=== PATIENT | female | born 1980 | race American Indian/Alaskan Native ===

== ENCOUNTER 2020-07-18 02:19 | Inpatient (IN) | payer OTHER ==
[2020-07-18] MEDS ORDERED: diphenhydrAMINE 50 MG/ML VIAL IV ONE (04:08)
[2020-07-18] MEDS ORDERED: LACTATED RINGERS 1,000 ML IV ONE (04:08)
[2020-07-18] MEDS ORDERED: METOCLOPRAMIDE 10 MG/2 ML INJ IV ONE (04:08)
--- NOTE | 2020-07-18 04:10 | Emergency Department Report ---
ED General Adult HPI - General Chief complaint: Syncope Stated complaint: i fell and hit my head PUI?: No Time Seen by Provider: 07/18/20 02:41 Source: patient, EMS, RN notes reviewed Mode of arrival: Stretcher Limitations: Other (Patient somewhat confused and appears to be somewhat of a poor historian) - History of Present Illness Initial comments: The patient was evaluated in the emergency department for symptoms described in the history of present illness. He/she was evaluated in the context of the global COVID-19 pandemic, which necessitated consideration that the patient might be at risk for infection with the virus that causes COVID-19. Institutional protocols and algorithms that pertain to the evaluation of aspen ents at risk for COVID-19 are in a state of rapid change based on information released by regulatory bodies including the CDC and federal and state organizations. These policies and algorithms were followed during the patient's care in the emergency department. Please note that these policies, procedures and recommendations changed on a rapid basis. During the history and physical examination, I am chaperoned by nurse Angela Capma Patient is a 40-year-old female. She is not known to myself previously. She is brought to the hospital by emergency medical services. History obtained from chart and nurse, who received report from EMS, who in turn received report from family, and also from the patient. Apparently, the patient was in the bathroom earlier on today/yesterday, and had an episode of loss of consciousness. It does not know if the patient had an episode of syncope, seizure, or otherwise. The patient herself states that she felt like she was in her usual state of h ealth over the past few days. Before this evening's presentation, she denies all physical pain. She denies loss of taste and smell. She specifically denied chest pain or shortness of breath. Apparently, the patient had a loss of consciousness while in the bathroom, fell and hit her head. Patient thinks that she fell and hit her head as well. She cannot recall the circumstances that preceded this. She denies travel, surgery, DVT, pulmonary embolism risk factors, and she reports that she is not . She has a mild headache. The headache is not sudden or thunderclap in nature. The headache is not maximal in intensity. There is no midline neck pain. The patient denies drug overdose. The patient denies having had seizures in the past. The patient does not believe she takes any long-term prescription medications. -: Sudden Location: head Severity scale (0 -10): 0 Quality: aching Consistency: intermittent Improves with: rest ED Review of Systems ROS: Stated complaint: SEIZURE/FALL Other details as noted in HPI Constitutional: malaise, weakness, other (Denies loss of taste and smell). denies: fever Eyes: denies: eye discharge, vision change Respiratory: denies: cough Cardiovascular: syncope (Possible syncope). denies: chest pain Gastrointestinal: denies: abdominal pain, nausea, vomiting, hematemesis, melena, hematochezia Genitourinary: denies: dysuria Musculoskeletal: myalgia Neurological: headache, weakness, confusion. denies: numbness, paresthesias Psychiatric: as per HPI ED Past Medical Hx - Past Medical History Previous Medical History?: Yes Hx Asthma: Yes - Surgical History Past Surgical History?: Yes Additional Surgical History: sinus - Social History Smoking Status: Never Smoker Substance Use Type: Alcohol ED Physical Exam - General Limitations: Other (Patient has incomplete recollection of events.) General appearance: in no apparent distress, obese - Head Head exam: Present: atraumatic, normocephalic - Eye Eye exam: Present: normal appearance, PERRL, EOMI, other (Visual acuity intact to finger counting, color perception, reading at a close distance). Absent: nystagmus - ENT ENT exam: Present: normal exam, normal orophraynx, mucous membranes moist, TM's normal bilaterally, normal external ear exam, other (No mastoid tenderness. No hemotympanum. No nasal septal hematoma) - Neck Neck exam: Present: normal inspection. Absent: tenderness, meningismus - Respiratory Respiratory exam: Present: normal lung sounds bilaterally. Absent: respiratory distress, wheezes, rales, rhonchi, stridor, decreased breath sounds - Cardiovascular Cardiovascular Exam: Present: regular rate, normal rhythm, normal heart sounds. Absent: bradycardia, tachycardia, irregular rhythm, systolic murmur, diastolic murmur, rubs, gallop - GI/Abdominal GI/Abdominal exam: Present: soft, normal bowel sounds. Absent: distended, tenderness, guarding, rebound, rigid, pulsatile mass - Extremities Exam Extremities exam: Present: normal inspection, full ROM, other (2+ pulses noted in the bilateral upper and lower extremities. There is no palpable cord. negative Homans sign. Muscular compartments are soft. The pelvis is stable.). Absent: pedal edema, calf tenderness - Back Exam Back exam: Present: normal inspection, full ROM. Absent: tenderness, CVA tenderness (R), CVA tenderness (L), paraspinal tenderness, vertebral tenderness - Neurological Exam Neurological exam: Present: alert, normal gait, other (No facial droop. Tongue midline. Extraocular movements intact bilaterally. Facial sensation intact to light touch in V1, V2, V3 distribution bilaterally. 5 and a 5 strength in 4 extremities. Sensation intact to light touch in 4 extremities.). Absent: motor sensory deficit - Psychiatric Psychiatric exam: Present: normal affect, normal mood - Skin Skin exam: Present: warm, dry, intact, normal color. Absent: rash ED Course Vital Signs 07/18/20 07/18/20 03:08 05:03 Temperature 98.0 F Pulse Rate 86 90 Respiratory 15 20 Rate Blood Pressure 113/67 116/65 [Left] O2 Sat by Pulse 98 100 Oximetry - Reevaluation(s) Reevaluation #1: 07/18/20 04:39 Differential diagnosis, including but not limited to: Orthostasis, vagal event, structural cardiac disease, acute coronary syndrome, pulmonary embolism, seizure, convulsion, electrolyte derangement, concussion, closed head injury, spinal injury Assessment and plan: 40-year-old female found unresponsive at home, now currently awake, alert, oriented, minimally confused, GCS of 14, but not c linically intoxicated. She is not currently tachycardic, tachypneic or hypoxic, she has a nonfocal motor examination. Given confusion and closed head injury, obtain CT scan of the brain and cervical spine. Obtain appropriate laboratory studies, EKG, urinalysis, serum toxicology studies, Accu-Chek, and D-dimer. Treat patient's symptoms. Reassess after initial data points. Place patient on spanner operator. Reevaluation #2: 07/18/20 05:20 Mclennan syncope risk score: 1 points Mclennan Syncope Risk Score Medium risk 3.1% risk of 30-day serious adverse event (, arrhythmia, [place] D-dimer elevated. CT scan of the chest ordered. EKG abnormal. We would likely admit this patient for evaluation of seizure versus syncope, and abnormal EKG. 07/18/20 05:58 Patient resting comfortably. She is sleepy but arousable. CT scan of the chest pending interpretation. Patient amenable to admission/hospitalization for seizure/syncope work-up. Hospital physician, Dr. Sylvester Boswell to admit 07/18/20 06:13 received verbal report from radiologist. CT scan of the chest suggest small pulmonary emboli, without evidence of right heart strain, or large clot burden. Lovenox ordered. I doubt that this is the cause of the patient's syncope. I will defer to the inpatient team to further follow-up and manage. ED Medical Decision Making - Lab Data Result diagrams: 07/18/20 04:25 07/18/20 04:25 Vital Signs 07/18/20 03:08 Temperature 98.0 F Pulse Rate 86 Respiratory 15 Rate Blood Pressure 113/67 [Left] O2 Sat by Pulse 98 Oximetry Vital Signs 07/18/20 07/18/20 03:08 05:03 Temperature 98.0 F Pulse Rate 86 90 Respiratory 15 20 Rate Blood Pressure 113/67 116/65 [Left] O2 Sat by Pulse 98 100 Oximetry Lab Results 07/18/20 07/18/20 07/18/20 Range/Units 04:11 04:11 04:25 WBC 7.0 (4.5-11.0) K/mm3 RBC 3.94 (3.65-5.03) M/mm3 Hgb 12.4 (10.1-14.3) gm/dl Hct 36.4 (30.3-42.9) % MCV 92 (79-97) fl MCH 32 (28-32) pg MCHC 34 (30-34) % RDW 12.5 L (13.2-15.2) % Plt Count 303 (140-440) K/mm3 Lymph % (Auto) 13.3 L (13.4-35.0) % Lander % (Auto) 4.7 (0.0-7.3) % Eos % (Auto) 1.3 (0.0-4.3) % Baso % (Auto) 0.4 (0.0-1.8) % Lymph # (Auto) 0.9 L (1.2-5.4) K/mm3 Lander # (Auto) 0.3 (0.0-0.8) K/mm3 Eos # (Auto) 0.1 (0.0-0.4) K/mm3 Baso # (Auto) 0.0 (0.0-0.1) K/mm3 Seg Neutrophils % 80.3 H (40.0-70.0) % Seg Neutrophils # 5.6 (1.8-7.7) K/mm3 PT (12.2-14.9) Sec. INR (0.87-1.13) D-Dimer (0-234) ng/mlDDU Sodium (137-145) mmol/L Potassium (3.6-5.0) mmol/L Chloride (98-107) mmol/L Carbon Dioxide (22-30) mmol/L Anion Gap mmol/L BUN (7-17) mg/dL Creatinine (0.6-1.2) mg/dL Estimated GFR ml/min BUN/Creatinine Ratio % Glucose (65-100) mg/dL Calcium (8.4-10.2) mg/dL Magnesium (1.7-2.3) mg/dL Total Bilirubin (0.1-1.2) mg/dL AST (5-40) units/L ALT (7-56) units/L Alkaline Phosphatase (35-129) units/L Total Creatine Kinase (30-135) units/L Troponin T (0.00-0.029) ng/mL Total Protein (6.3-8.2) g/dL Albumin (3.9-5) g/dL Albumin/Globulin Ratio % HCG, Quant (0-4) mIU/mL Urine Color Yellow (Yellow) Urine Turbidity Slightly-cloudy (Clear) Urine pH 5.0 (5.0-7.0) Ur Specific Gardners 1.019 (1.003-1.030) Urine Protein 30 mg/dl (Negative) mg/dL Urine Glucose (UA) Neg (Negative) mg/dL Urine Ketones Neg (Negative) mg/dL Urine Blood Neg (Negative) Urine Nitrite Neg (Negative) Urine Bilirubin Neg (Negative) Urine Urobilinogen 4.0 (<2.0) mg/dL Ur Leukocyte Esterase Neg (Negative) Urine WBC (Auto) 5.0 (0.0-6.0) /HPF Urine RBC (Auto) 4.0 (0.0-6.0) /HPF U Epithel Cells (Auto) 1.0 (0-13.0) /HPF Urine Bacteria (Auto) 2+ (Negative) /HPF Urine Mucus Few /HPF Urine Yeast (Budding) Few /HPF Salicylates (2.8-20.0) mg/dL Urine Opiates Screen Presumptive negative Urine Methadone Screen Presumptive negative Acetaminophen (10.0-30.0) ug/mL Ur Barbiturates Screen Presumptive negative Ur Phencyclidine Scrn Presumptive negative Ur Amphetamines Screen Presumptive negative U Benzodiazepines Scrn Presumptive negative Urine Cocaine Screen Presumptive negative U Marijuana (THC) Screen Presumptive negative Drugs of Abuse Note Disclamer Plasma/Serum Alcohol (0-0.07) % 07/18/20 07/18/20 07/18/20 Range/Units 04:25 04:25 04:25 WBC (4.5-11.0) K/mm3 RBC (3.65-5.03) M/mm3 Hgb (10.1-14.3) gm/dl Hct (30.3-42.9) % MCV (79-97) fl MCH (28-32) pg MCHC (30-34) % RDW (13.2-15.2) % Plt Count (140-440) K/mm3 Lymph % (Auto) (13.4-35.0) % Lander % (Auto) (0.0-7.3) % Eos % (Auto) (0.0-4.3) % Baso % (Auto) (0.0-1.8) % Lymph # (Auto) (1.2-5.4) K/mm3 Lander # (Auto) (0.0-0.8) K/mm3 Eos # (Auto) (0.0-0.4) K/mm3 Baso # (Auto) (0.0-0.1) K/mm3 Seg Neutrophils % (40.0-70.0) % Seg Neutrophils # (1.8-7.7) K/mm3 PT (12.2-14.9) Sec. INR (0.87-1.13) D-Dimer (0-234) ng/mlDDU Sodium 138 (137-145) mmol/L Potassium 4.0 (3.6-5.0) mmol/L Chloride 103.3 (98-107) mmol/L Carbon Dioxide 25 (22-30) mmol/L Anion Gap 14 mmol/L BUN 13 (7-17) mg/dL Creatinine 0.9 (0.6-1.2) mg/dL Estimated GFR > 60 ml/min BUN/Creatinine Ratio 14 % Glucose 109 H (65-100) mg/dL Calcium 8.8 (8.4-10.2) mg/dL Magnesium (1.7-2.3) mg/dL Total Bilirubin 0.40 (0.1-1.2) mg/dL AST 18 (5-40) units/L ALT 10 (7-56) units/L Alkaline Phosphatase 67 (35-129) units/L Total Creatine Kinase (30-135) units/L Troponin T (0.00-0.029) ng/mL Total Protein 7.7 (6.3-8.2) g/dL Albumin 4.3 (3.9-5) g/dL Albumin/Globulin Ratio 1.3 % HCG, Quant (0-4) mIU/mL Urine Color (Yellow) Urine Turbidity (Clear) Urine pH (5.0-7.0) Ur Specific Gardners (1.003-1.030) Urine Protein (Negative) mg/dL Urine Glucose (UA) (Negative) mg/dL Urine Ketones (Negative) mg/dL Urine Blood (Negative) Urine Nitrite (Negative) Urine Bilirubin (Negative) Urine Urobilinogen (<2.0) mg/dL Ur Leukocyte Esterase (Negative) Urine WBC (Auto) (0.0-6.0) /HPF Urine RBC (Auto) (0.0-6.0) /HPF U Epithel Cells (Auto) (0-13.0) /HPF Urine Bacteria (Auto) (Negative) /HPF Urine Mucus /HPF Urine Yeast (Budding) /HPF Salicylates < 0.3 L (2.8-20.0) mg/dL Urine Opiates Screen Urine Methadone Screen Acetaminophen 5.0 L (10.0-30.0) ug/mL Ur Barbiturates Screen Ur Phencyclidine Scrn Ur Amphetamines Screen U Benzodiazepines Scrn Urine Cocaine Screen U Marijuana (THC) Screen Drugs of Abuse Note Plasma/Serum Alcohol (0-0.07) % 07/18/20 07/18/20 07/18/20 Range/Units 04:25 04:25 04:25 WBC (4.5-11.0) K/mm3 RBC (3.65-5.03) M/mm3 Hgb (10.1-14.3) gm/dl Hct (30.3-42.9) % MCV (79-97) fl MCH (28-32) pg MCHC (30-34) % RDW (13.2-15.2) % Plt Count (140-440) K/mm3 Lymph % (Auto) (13.4-35.0) % Lander % (Auto) (0.0-7.3) % Eos % (Auto) (0.0-4.3) % Baso % (Auto) (0.0-1.8) % Lymph # (Auto) (1.2-5.4) K/mm3 Lander # (Auto) (0.0-0.8) K/mm3 Eos # (Auto) (0.0-0.4) K/mm3 Baso # (Auto) (0.0-0.1) K/mm3 Seg Neutrophils % (40.0-70.0) % Seg Neutrophils # (1.8-7.7) K/mm3 PT 13.3 (12.2-14.9) Sec. INR 1.02 (0.87-1.13) D-Dimer 1482.03 H (0-234) ng/mlDDU Sodium (137-145) mmol/L Potassium (3.6-5.0) mmol/L Chloride (98-107) mmol/L Carbon Dioxide (22-30) mmol/L Anion Gap mmol/L BUN (7-17) mg/dL Creatinine (0.6-1.2) mg/dL Estimated GFR ml/min BUN/Creatinine Ratio % Glucose (65-100) mg/dL Calcium (8.4-10.2) mg/dL Magnesium 2.00 (1.7-2.3) mg/dL Total Bilirubin (0.1-1.2) mg/dL AST (5-40) units/L ALT (7-56) units/L Alkaline Phosphatase (35-129) units/L Total Creatine Kinase 336 H (30-135) units/L Troponin T < 0.010 (0.00-0.029) ng/mL Total Protein (6.3-8.2) g/dL Albumin (3.9-5) g/dL Albumin/Globulin Ratio % HCG, Quant (0-4) mIU/mL Urine Color (Yellow) Urine Turbidity (Clear) Urine pH (5.0-7.0) Ur Specific Gardners (1.003-1.030) Urine Protein (Negative) mg/dL Urine Glucose (UA) (Negative) mg/dL Urine Ketones (Negative) mg/dL Urine Blood (Negative) Urine Nitrite (Negative) Urine Bilirubin (Negative) Urine Urobilinogen (<2.0) mg/dL Ur Leukocyte Esterase (Negative) Urine WBC (Auto) (0.0-6.0) /HPF Urine RBC (Auto) (0.0-6.0) /HPF U Epithel Cells (Auto) (0-13.0) /HPF Urine Bacteria (Auto) (Negative) /HPF Urine Mucus /HPF Urine Yeast (Budding) /HPF Salicylates (2.8-20.0) mg/dL Urine Opiates Screen Urine Methadone Screen Acetaminophen (10.0-30.0) ug/mL Ur Barbiturates Screen Ur Phencyclidine Scrn Ur Amphetamines Screen U Benzodiazepines Scrn Urine Cocaine Screen U Marijuana (THC) Screen Drugs of Abuse Note Plasma/Serum Alcohol < 0.01 (0-0.07) % 07/18/20 Range/Units 04:25 WBC (4.5-11.0) K/mm3 RBC (3.65-5.03) M/mm3 Hgb (10.1-14.3) gm/dl Hct (30.3-42.9) % MCV (79-97) fl MCH (28-32) pg MCHC (30-34) % RDW (13.2-15.2) % Plt Count (140-440) K/mm3 Lymph % (Auto) (13.4-35.0) % Lander % (Auto) (0.0-7.3) % Eos % (Auto) (0.0-4.3) % Baso % (Auto) (0.0-1.8) % Lymph # (Auto) (1.2-5.4) K/mm3 Lander # (Auto) (0.0-0.8) K/mm3 Eos # (Auto) (0.0-0.4) K/mm3 Baso # (Auto) (0.0-0.1) K/mm3 Seg Neutrophils % (40.0-70.0) % Seg Neutrophils # (1.8-7.7) K/mm3 PT (12.2-14.9) Sec. INR (0.87-1.13) D-Dimer (0-234) ng/mlDDU Sodium (137-145) mmol/L Potassium (3.6-5.0) mmol/L Chloride (98-107) mmol/L Carbon Dioxide (22-30) mmol/L Anion Gap mmol/L BUN (7-17) mg/dL Creatinine (0.6-1.2) mg/dL Estimated GFR ml/min BUN/Creatinine Ratio % Glucose (65-100) mg/dL Calcium (8.4-10.2) mg/dL Magnesium (1.7-2.3) mg/dL Total Bilirubin (0.1-1.2) mg/dL AST (5-40) units/L ALT (7-56) units/L Alkaline Phosphatase (35-129) units/L Total Creatine Kinase (30-135) units/L Troponin T (0.00-0.029) ng/mL Total Protein (6.3-8.2) g/dL Albumin (3.9-5) g/dL Albumin/Globulin Ratio % HCG, Quant < 2 (0-4) mIU/mL Urine Color (Yellow) Urine Turbidity (Clear) Urine pH (5.0-7.0) Ur Specific Gardners (1.003-1.030) Urine Protein (Negative) mg/dL Urine Glucose (UA) (Negative) mg/dL Urine Ketones (Negative) mg/dL Urine Blood (Negative) Urine Nitrite (Negative) Urine Bilirubin (Negative) Urine Urobilinogen (<2.0) mg/dL Ur Leukocyte Esterase (Negative) Urine WBC (Auto) (0.0-6.0) /HPF Urine RBC (Auto) (0.0-6.0) /HPF U Epithel Cells (Auto) (0-13.0) /HPF Urine Bacteria (Auto) (Negative) /HPF Urine Mucus /HPF Urine Yeast (Budding) /HPF Salicylates (2.8-20.0) mg/dL Urine Opiates Screen Urine Methadone Screen Acetaminophen (10.0-30.0) ug/mL Ur Barbiturates Screen Ur Phencyclidine Scrn Ur Amphetamines Screen U Benzodiazepines Scrn Urine Cocaine Screen U Marijuana (THC) Screen Drugs of Abuse Note Plasma/Serum Alcohol (0-0.07) % - EKG Data -: EKG Interpreted by Me EKG shows normal: sinus rhythm Rate: normal - EKG Data When compared to previous EKG there are: previous EKG unavailable 07/18/20 04:54 No prior EKGs available for comparison. Time of interpretation, 4: 42 AM Sinus rhythm, 77 bpm. Left axis deviation, left anterior fascicular block, QTC within normal limits, low voltage in the lateral leads, T wave inversions V3. Abnormal EKG. Not a STEMI. - Radiology Data Radiology results: pending, report reviewed, image reviewed CT head/brain wo con, CT cervical spine wo con INDICATION: Seizure. TECHNIQUE: CT head and cervical spine without contrast. All CT scans at this location are performed using CT dose reduction for ALARA by means of automated exposure control. COMPARISON: None. FINDINGS: HEAD: Intracranial: Sanchez-white matter differentiation is maintained. No intracranial hemorrhage. No extra axial collection.. No hydrocephalus. No herniation. Sinuses: Findings consistent with sinonasal polyps and paranasal sinus mucosal thickening with prior sinus surgery small left mastoid effusion... Orbits: Globes are intact Calvarium: No acute fracture. CERVICAL: Alignment: Straightening of the cervical spine. Vertebrae: No fracture. Vertebral body heights are preserved. C1 and C2 are congruent. Atlantooccipital joint is maintained. Spondylolysis: Mild multilevel spondylosis. Soft tissues: No prevertebral soft tissue thickening. Additional findings: No significant additional findings. IMPRESSION: 1. No acute intracranial abnormality. 2.No cervical spine fracture. Signer Name: Chandan Beckett MD Signed: 07/18/2020 3:44 AM Workstation Name: [id number] Critical care attestation.: If time is entered above; I have spent that time in minutes in the direct care of this critically ill patient, excluding procedure time. ED Disposition Clinical Impression: Syncope, Abnormal EKG, Closed head injury, Pulmonary embolism Disposition: OP ADMIT IP TO THIS HOSP Is pt being admited?: Yes Does the pt Need Aspirin: Yes Condition: Stable Instructions: Syncope (ED) Referrals: PRIMARY CARE, [Primary Care Provider] - 3-5 Days
[2020-07-18 04:42] LABS: Basophils % (Auto) 0.4 % (0.0-1.8); Eosinophils # (Auto) 0.1 K/mm3 (0.0-0.4); Eosinophils % (Auto) 1.3 % (0.0-4.3); Hematocrit 36.4 % (30.3-42.9); Hemoglobin 12.4 gm/dl (10.1-14.3); Lymphocytes # (Auto) 0.9 K/mm3 (1.2-5.4); Lymphocytes % (Auto) 13.3 % (13.4-35.0); Mean Corpuscular HGB Conc 34 % (30-34); Mean Corpuscular Volume 92 fl (79-97); Monocytes # (Auto) 0.3 K/mm3 (0.0-0.8); Monocytes % (Auto) 4.7 % (0.0-7.3); Platelet Count 303 K/mm3 (140-440); Red Blood Count 3.94 M/mm3 (3.65-5.03); Red Cell Distribution Width 12.5 % (13.2-15.2)
[2020-07-18 04:46] LABS: Bacteria,Urine 2+ /HPF (Negative); Bilirubin,Urine NEG (Negative); Blood,Urine NEG (Negative); Color,Urine Yellow (Yellow); Mucus,Urine FEW /HPF
--- NOTE | 2020-07-18 04:48 | Cat Scan Report ---
CT head/brain wo con, CT cervical spine wo con INDICATION: Seizure. TECHNIQUE: CT head and cervical spine without contrast. All CT scans at this location are performed u sing CT dose reduction for ALARA by means of automated exposure control. COMPARISON: None. FINDINGS: HEAD: Intracranial: Sanchez-white matter differentiation is maintained. No intracranial hemorrhage. No extra a xial collection.. No hydrocephalus. No herniation. Sinuses: Findings consistent with sinonasal polyps and paranasal sinus mucosal thickening with prior sinus surgery small left mastoid effusion... Orbits: Globes are intact Calvarium: No acute fracture. CERVICAL: Alignment: Straightening of the cervical spine. Vertebrae: No fracture. Vertebral body heights are preserved. C1 and C2 are congruent. Atlantooccipi naina joint is maintained. Spondylolysis: Mild multilevel spondylosis. Soft tissues: No prevertebral soft tissue thickening. Additional findings: No significant additional findings. IMPRESSION: 1. No acute intracranial abnormality. 2.No cervical spine fracture. Signer Name: Chandan Beckett MD Signed: 07/18/2020 4:44 AM Workstation Name: [email or web address]
[2020-07-18 04:52] LABS: Amphetamine Screen,Urine PRESUMPTIVE NEGATIVE; Benzodiazepines Screen,Urine PRESUMPTIVE NEGATIVE; Cannabinoid Screen,Urine PRESUMPTIVE NEGATIVE; Cocaine Screen,Urine PRESUMPTIVE NEGATIVE; Methadone Screen,Urine PRESUMPTIVE NEGATIVE; Opiate Screen,Urine PRESUMPTIVE NEGATIVE
[2020-07-18 04:53] LABS: INR 1.02 (0.87-1.13)
[2020-07-18 05:10] LABS: Alanine Aminotransferase 10 units/L (7-56); Albumin 4.3 g/dL (3.9-5); BUN/Creatinine Ratio 14; Blood Urea Nitrogen 13 mg/dL (7-17); Calcium 8.8 mg/dL (8.4-10.2); Hemolysis Index 8
[2020-07-18] MEDS ORDERED: ASPIRIN 81 MG TAB CHEW PO ONE (05:21)
[2020-07-18] MEDS ORDERED: ENOXAPARIN 100 MG/1 ML INJ SUB-Q ONE (06:12)
--- NOTE | 2020-07-18 06:16 | Cat Scan Report ---
CT angio chest INDICATION / CLINICAL INFORMATION: Syncope, elevated D-dimer, abnormal EKG. TECHNIQUE: Axial CT images were obtained through the chest after injection of IV contrast. 3 plane MIP and/or 3D reconstructions were produced. All CT scans at this location are performed using CT dose reduction f or ALARA by means of automated exposure control. COMPARISON: None available. FINDINGS: PULMONARY ARTERIES: Please note that respiratory motion significantly degrades image quality.There is suspected scattered segmental pulmonary emboli for example seen within the anterior left upper lobe and right upper lobe (for example left upper lobe on image 136 of series 4 and right upper lobe on im age 128 of series 4. HEART: RV to LV ratio is normal. MEDIASTINUM / ALLEGRA: No significant abnormality. LUNGS: Minimal dependent right lower lobe atelectasis. No pleural effusion. No pneumothorax. ADDITIONAL FINDINGS: None. UPPER ABDOMEN: No acute findings. SKELETAL STRUCTURES: No significant osseous abnormality. IMPRESSION: 1. Motion significantly degrades image quality of the pulmonary arteries and decreases the sensitivit y and specificity of this examination. However, there is suspected segmental pulmonary emboli present . No evidence for right heart strain. Signer Name: Chandan Beckett MD Signed: 07/18/2020 6:12 AM Workstation Name: [id number]
[2020-07-18] MEDS ORDERED: HEPARIN 10,000 UNITS/10 ML VIAL IV ONE (06:52)
[2020-07-18] MEDS ORDERED: HEPARIN 10,000 UNITS/10 ML VIAL IV PRN (06:52)
[2020-07-18] MEDS ORDERED: LORazepam 2 MG/ML VIAL IV PRN (07:00)
[2020-07-18] MEDS ORDERED: ONDANSETRON 4 MG/2 ML INJ IV PRN (07:00)
--- NOTE | 2020-07-18 07:12 | History and Physical Report ---
History of Present Illness Date of examination: 07/18/20 Date of admission: 07/18/20 05:59 Chief complaint: Chief complaint is syncopal attack, other complaint include seizure attack History of present illness: History of presenting illness, patient is a 40-year-old female who passed out at home and observed by by the mother who told EMS that patient had a seizure attack, patient said she woke up in the ambulance and did not remember what happened. There was no prior history of chest pain, shortness of breath, fever or chills, headache or dizziness ,nausea or vomiting and patient was subsequently brought to the emergency room Past History Past Medical History: other ( ASTHMA, SINUS DISEASE) Past Surgical History: Other (SINUS SURGERY) Medications and Allergies Allergies Allergy/AdvReac Type Severity Reaction Status Date / Time No Known Allergies Allergy Unverified 07/18/20 06:37 Active Meds: Active Medications Acetaminophen (Acetaminophen 325 Mg Tab) 650 mg PO Q4H PRN PRN Reason: Headache Heparin Sodium/Sodium Chloride (Heparin/ 0.45% Nacl-25,000 Unit/500 Ml) 25,000 unit in 500 mls @ 29.257 mls/hr IV TITR ADAM; Protocol Lorazepam (Lorazepam 2 Mg/Ml Vial) 1 mg IV Q4H PRN PRN Reason: Seizures Ondansetron HCl (Ondansetron 4 Mg/2 Ml Inj) 4 mg IV Q8H PRN PRN Reason: Nausea And Vomiting Warfarin Sodium (Warfarin 5 Mg Tab) 5 mg PO DAILY@1700 ADAM; Protocol Review of Systems Constitutional: no fever, no chills, no sweats, no weakness, no malaise Eyes: bilateral: other (NO BILATERAL EYE SYMPTOMS) Ears, nose, mouth and throat: no ear pain Breasts: deferred Cardiovascular: no chest pain, no orthopnea, no palpitations, no syncope, no lightheadedness, no shortness of breath Respiratory: no cough, no hemoptysis, no shortness of breath, no dyspnea on exertion Gastrointestinal: no abdominal pain, no nausea, no vomiting, no diarrhea, no constipation, no hematemesis Rectal: no pain Musculoskeletal: no neck stiffness, no neck pain Integumentary: no rash, no pruritis, no redness, no sores, no wounds Neurological: seizures, syncope, change in mentation, no head injury, no paralysis, no weakness, no parathesias, no numbness, no tingling, no tremors, no ataxia, no vertigo, no headaches, no migraines, no aphasia, no change in speech, no confusion Psychiatric: no anxiety, no depression Endocrine: no polyphagia, no polyuria, no nocturia Exam - Constitutional Vitals: Temp Pulse Resp BP Pulse Ox 98.0 F 82 13 105/58 98 07/18/20 03:08 07/18/20 06:30 07/18/20 06:30 07/18/20 06:30 07/18/20 06:30 General appearance: Present: no acute distress - EENT Eyes: Present: EOM intact ENT: hearing intact, clear oral mucosa, dentition normal - Neck Neck: Present: supple, normal ROM - Respiratory Respiratory effort: normal - Cardiovascular Rhythm: regular Heart Sounds: Present: S1 & S2. Absent: gallop, systolic murmur, diastolic murmur - Extremities Extremities: no ischemia, No edema Peripheral Pulses: within normal limits - Abdominal General gastrointestinal: Present: soft, non-tender, non-distended. Absent: tender, distended, rigid, mass Female genitourinary: Present: deferred - Rectal Rectal Exam: deferred - Integumentary Integumentary: Present: clear, warm, dry - Musculoskeletal Musculoskeletal: generalized weakness - Psychiatric Psychiatric: appropriate mood/affect HEART Score - HEART Score Risk factors: 1-2 risk factors Troponin: Troponin T < 0.010 ng/mL (0.00-0.029) 07/18/20 04:25 Troponin: < normal limit - Critical Actions Critical Actions: 0-3 pts:0.9-1.7%risk of adverse cardiac event.Candidate for discharge Results - Labs CBC & Chem 7: 07/18/20 04:25 07/18/20 04:25 Labs: Laboratory Last Values WBC 7.0 K/mm3 (4.5-11.0) 07/18/20 04:25 RBC 3.94 M/mm3 (3.65-5.03) 07/18/20 04:25 Hgb 12.4 gm/dl (10.1-14.3) 07/18/20 04:25 Hct 36.4 % (30.3-42.9) 07/18/20 04:25 MCV 92 fl (79-97) 07/18/20 04:25 MCH 32 pg (28-32) 07/18/20 04:25 MCHC 34 % (30-34) 07/18/20 04:25 RDW 12.5 % (13.2-15.2) L 07/18/20 04:25 Plt Count 303 K/mm3 (140-440) 07/18/20 04:25 Lymph % (Auto) 13.3 % (13.4-35.0) L 07/18/20 04:25 [place] % (Auto) 4.7 % (0.0-7.3) 07/18/20 04:25 Eos % (Auto) 1.3 % (0.0-4.3) 07/18/20 04:25 Baso % (Auto) 0.4 % (0.0-1.8) 07/18/20 04:25 Lymph # (Auto) 0.9 K/mm3 (1.2-5.4) L 07/18/20 04:25 [place] # (Auto) 0.3 K/mm3 (0.0-0.8) 07/18/20 04:25 Eos # (Auto) 0.1 K/mm3 (0.0-0.4) 07/18/20 04:25 Baso # (Auto) 0.0 K/mm3 (0.0-0.1) 07/18/20 04:25 Seg Neutrophils % 80.3 % (40.0-70.0) H 07/18/20 04:25 Seg Neutrophils # 5.6 K/mm3 (1.8-7.7) 07/18/20 04:25 PT 13.3 Sec. (12.2-14.9) 07/18/20 04:25 INR 1.02 (0.87-1.13) 07/18/20 04:25 D-Dimer 1482.03 ng/mlDDU (0-234) H 07/18/20 04:25 Sodium 138 mmol/L (137-145) 07/18/20 04:25 Potassium 4.0 mmol/L (3.6-5.0) 07/18/20 04:25 Chloride 103.3 mmol/L (98-107) 07/18/20 04:25 Carbon Dioxide 25 mmol/L (22-30) 07/18/20 04:25 Anion Gap 14 mmol/L 07/18/20 04:25 BUN 13 mg/dL (7-17) 07/18/20 04:25 Creatinine 0.9 mg/dL (0.6-1.2) 07/18/20 04:25 Estimated GFR > 60 ml/min 07/18/20 04:25 BUN/Creatinine Ratio 14 % 07/18/20 04:25 Glucose 109 mg/dL (65-100) H 07/18/20 04:25 Calcium 8.8 mg/dL (8.4-10.2) 07/18/20 04:25 Magnesium 2.00 mg/dL (1.7-2.3) 07/18/20 04:25 Total Bilirubin 0.40 mg/dL (0.1-1.2) 07/18/20 04:25 AST 18 units/L (5-40) 07/18/20 04:25 ALT 10 units/L (7-56) 07/18/20 04:25 Alkaline Phosphatase 67 units/L (35-129) 07/18/20 04:25 Total Creatine Kinase 336 units/L (30-135) H 07/18/20 04:25 Troponin T < 0.010 ng/mL (0.00-0.029) 07/18/20 04:25 Total Protein 7.7 g/dL (6.3-8.2) 07/18/20 04:25 Albumin 4.3 g/dL (3.9-5) 07/18/20 04:25 Albumin/Globulin Ratio 1.3 % 07/18/20 04:25 HCG, Quant < 2 mIU/mL (0-4) 07/18/20 04:25 Urine Color Yellow (Yellow) 07/18/20 04:11 Urine Turbidity Slightly-cloudy (Clear) 07/18/20 04:11 Urine pH 5.0 (5.0-7.0) 07/18/20 04:11 Ur Specific [place] 1.019 (1.003-1.030) 07/18/20 04:11 Urine Protein 30 mg/dl mg/dL (Negative) 07/18/20 04:11 Urine Glucose (UA) Neg mg/dL (Negative) 07/18/20 04:11 Urine Ketones Neg mg/dL (Negative) 07/18/20 04:11 Urine Blood Neg (Negative) 07/18/20 04:11 Urine Nitrite Neg (Negative) 07/18/20 04:11 Urine Bilirubin Neg (Negative) 07/18/20 04:11 Urine Urobilinogen 4.0 mg/dL (<2.0) 07/18/20 04:11 Ur Leukocyte Esterase Neg (Negative) 07/18/20 04:11 Urine WBC (Auto) 5.0 /HPF (0.0-6.0) 07/18/20 04:11 Urine RBC (Auto) 4.0 /HPF (0.0-6.0) 07/18/20 04:11 U Epithel Cells (Auto) 1.0 /HPF (0-13.0) 07/18/20 04:11 Urine Bacteria (Auto) 2+ /HPF (Negative) 07/18/20 04:11 Urine Mucus Few /HPF 07/18/20 04:11 Urine Yeast (Budding) Few /HPF 07/18/20 04:11 Salicylates < 0.3 mg/dL (2.8-20.0) L 07/18/20 04:25 Urine Opiates Screen Presumptive negative 07/18/20 04:11 Urine Methadone Screen Presumptive negative 07/18/20 04:11 Acetaminophen 5.0 ug/mL (10.0-30.0) L 07/18/20 04:25 Ur Barbiturates Screen Presumptive negative 07/18/20 04:11 Ur Phencyclidine Scrn Presumptive negative 07/18/20 04:11 Ur Amphetamines Screen Presumptive negative 07/18/20 04:11 U Benzodiazepines Scrn Presumptive negative 07/18/20 04:11 Urine Cocaine Screen Presumptive negative 07/18/20 04:11 U Marijuana (THC) Screen Presumptive negative 07/18/20 04:11 Drugs of Abuse Note Disclamer 07/18/20 04:11 Plasma/Serum Alcohol < 0.01 % (0-0.07) 07/18/20 04:25 Assessment and Plan - Patient Problems (1) Abnormal EKG Current Visit: Yes Status: Acute Plan to address problem: 1. CARDIOLOGY CONSULT 2. SERIAL CARDIAC ENZYMES (2) Pulmonary embolism Current Visit: Yes Status: Acute Plan to address problem: 1. I.V HEPARIN DRIP 2. PO COUMADIN WITH PHARMACY TO DOSE 3. 2 D ECHOCARDIOGRAM (3) Syncope Current Visit: Yes Status: Acute Plan to address problem: 1. SERIAL CARDIAC ENZYMES 2. 2 D ECHOCARDIOGRAM 3. BILATERAL CAROTID DOPPLER 4. I.V NORMAL SALINE (4) Seizure Current Visit: Yes Status: Acute Plan to address problem: 1. I.V ATIVAN PRN SEIZURE 2. NEUROLOGY CONSULT FOR DETERMINATION OF SEIZURE MEDICATIONS
[2020-07-18 08:29] LABS: Hematocrit 34.2 % (30.3-42.9); Hemoglobin 11.5 gm/dl (10.1-14.3)
[2020-07-18 08:42] LABS: INR 1.07 (0.87-1.13)
--- NOTE | 2020-07-18 10:44 | Event Note ---
Date: 07/18/20 Patient was admitted this morning with history of syncopal episode and seizures. Patient was initially evaluated, CT head without contrast no acute abnormality, CT cervical spine no acute abnormality, work-up is consistent with elevated D- dimers, CTA chest was done to rule out PE CTA report;motion significantly degrades image quality of the pulmonary arteries and decreases the sensitivity and specificity of this examination however there is suspected segmental pulmonary emboli present no evidence of right heart strain. patient was started on heparin drip per protocol, VQ scan is requested to rule out PE. If PE is negative will DC heparin drip. Senior Digital Designer discussed CTA chest report with radiologist Dr. Singh, he would review the images and let us know tomorrow Cardiology evaluation recommendations noted and appreciated Syncope work-up is in progress Neurology evaluated for further evaluation of syncope/seizures Recommended MRI brain, EEG Keppra 250 mg p.o. bid daily per neurology for 2wks and increase to 500 mg bid later Review patient's chart and treatment plan, agree with the current management We will closely monitor the patient and adjust the management as needed. Follow pending work-up, and adjust the management as needed. Plan of care reviewed with the patient and her nurse
[2020-07-18] MEDS: SODIUM CHLORIDE 0.9% 1000 ML 1,000 ML IV SCH (10:47)
[2020-07-18] MEDS: HEPARIN/ 0.45% NACL DRIP 25,000 UNIT/500 ML BAG IV SCH (10:47)
--- NOTE | 2020-07-18 11:44 | Consultation ---
History of Present Illness Consult date: 07/18/20 Requesting physician: CESARIO GONZALEZ Consult reason: arrhythmia History of present illness: This patient is a 40 year old female with a hx of asthma. She is previously unknown to our practice. Patient does not recall the events which led to her admission and thus HPI is obtained from the chart. Patient presented to [facility] ER by EMS after reported syncope/seizure event observed by her mother. Patient reports she was walking either to or from the bathroom in her home. Patient was found in the bathroom after apparent ground level fall. Patient does not remember falling or any symptoms precipitating fall. Pt denies any previous seizure hx. The next event she recalls is regaining consciousness in the ambulance enroute to the ED. Pt takes no daily medications. She denies tobacco, ETOH, or drug use. Tele reviewed: Sinus Rhythm, HR 75. CTA Chest shows suspected segmental PTE. No evidence for right heart strain. Motion artifact present. Noncontrast Head CT: No acute findings. Echo 07/18/20: EF 55-60%. Past History Past Medical History: other ( ASTHMA, SINUS DISEASE) Past Surgical History: Other (SINUS SURGERY) Medications and Allergies Allergies Allergy/AdvReac Type Severity Reaction Status Date / Time No Known Allergies Allergy Unverified 07/18/20 06:37 Home Medications Medication Instructions Recorded Confirmed Last Taken Type No Known Home Medications [No 07/18/20 07/18/20 Unknown History Reported Home Medications] Active Meds: Active Medications Acetaminophen (Acetaminophen 325 Mg Tab) 650 mg PO Q4H PRN PRN Reason: Headache Heparin Sodium/Sodium Chloride (Heparin/ 0.45% Nacl-25,000 Unit/500 Ml) 25,000 unit in 500 mls @ 29 mls/hr IV TITR ADAM; Protocol Last Admin: 07/18/20 10:47 Dose: 1,450 units/hr, 29 mls/hr Documented by: Sodium Chloride (Nacl 0.9% 1000 Ml) 1,000 mls @ 125 mls/hr IV DIRECT ADAM Last Admin: 07/18/20 10:47 Dose: 125 mls/hr Documented by: Lorazepam (Lorazepam 2 Mg/Ml Vial) 1 mg IV Q4H PRN PRN Reason: Seizures Ondansetron HCl (Ondansetron 4 Mg/2 Ml Inj) 4 mg IV Q8H PRN PRN Reason: Nausea And Vomiting Warfarin Sodium (Warfarin 7.5 Mg Tab) 7.5 mg PO DAILY@1700 ADAM Review of Systems Constitutional: no weight loss, no weight gain, no fever, no chills, no sweats Ears, nose, mouth and throat: no ear pain, no ear discharge, no nose pain, no nasal congestion, no nasal discharge Cardiovascular: syncope, no chest pain, no orthopnea, no palpitations, no rapid/irregular heart beat, no edema, no shortness of breath Respiratory: no cough, no hemoptysis, no shortness of breath, no dyspnea on exertion Gastrointestinal: no abdominal pain, no nausea, no vomiting, no diarrhea, no constipation Genitourinary Female: no pelvic pain, no flank pain Musculoskeletal: no neck stiffness, no neck pain, no shooting arm pain, no arm numbness/tingling, no low back pain, no shooting leg pain Integumentary: no rash, no pruritis, no redness, no sores, no wounds Neurological: seizures, syncope, no head injury, no paralysis, no weakness, no parathesias, no numbness, no tingling Psychiatric: no anxiety Endocrine: no cold intolerance, no heat intolerance Hematologic/Lymphatic: no easy bruising, no easy bleeding Allergic/Immunologic: no urticaria Physical Examination Last Vital Signs Temp 97.7 F 07/18/20 08:45 Pulse 78 07/18/20 08:45 Resp 20 07/18/20 08:45 BP 108/48 07/18/20 08:45 Pulse Ox 98 07/18/20 06:30 General appearance: no acute distress HEENT: Positive: PERRL Neck: Positive: neck supple, trachea midline Cardiac: Positive: Reg Rate and Rhythm, S1/S2 Lungs: Positive: clear to auscultation, Normal Breath Sounds Neuro: Positive: Grossly Intact Abdomen: Positive: Unremarkable Skin: Negative: Rash, Wound Musculoskeletal: No Pain Extremities: Present: upper extr. pulses, lower extr. pulses. Absent: edema Results 07/18/20 08:12 07/18/20 04:25 Cardiac Enzymes 07/18/20 Range/Units 04:25 AST 18 (5-40) units/L Coagulation 07/18/20 07/18/20 Range/Units 04:25 08:12 PT 13.3 13.8 (12.2-14.9) Sec. INR 1.02 1.07 (0.87-1.13) APTT 32.0 (24.2-36.6) Sec. CBC 07/18/20 07/18/20 Range/Units 04:25 08:12 WBC 7.0 (4.5-11.0) K/mm3 RBC 3.94 (3.65-5.03) M/mm3 Hgb 12.4 11.5 (10.1-14.3) gm/dl Hct 36.4 34.2 (30.3-42.9) % Plt Count 303 297 (140-440) K/mm3 Lymph # (Auto) 0.9 L (1.2-5.4) K/mm3 [place] # (Auto) 0.3 (0.0-0.8) K/mm3 Eos # (Auto) 0.1 (0.0-0.4) K/mm3 Baso # (Auto) 0.0 (0.0-0.1) K/mm3 Comprehensive Metabolic Panel 07/18/20 Range/Units 04:25 Sodium 138 (137-145) mmol/L Potassium 4.0 (3.6-5.0) mmol/L Chloride 103.3 (98-107) mmol/L Carbon Dioxide 25 (22-30) mmol/L BUN 13 (7-17) mg/dL Creatinine 0.9 (0.6-1.2) mg/dL Glucose 109 H (65-100) mg/dL Calcium 8.8 (8.4-10.2) mg/dL AST 18 (5-40) units/L ALT 10 (7-56) units/L Alkaline Phosphatase 67 (35-129) units/L Total Protein 7.7 (6.3-8.2) g/dL Albumin 4.3 (3.9-5) g/dL - Imaging and Cardiology Echo: report reviewed (Echo 07/18/20: EF 55-60%. ) EKG: report reviewed, image reviewed EKG interpretations - Telemetry EKG Rhythm: Sinus Rhythm Assessment and Plan Cardiology consulted for abnormal ECG. ECG reviewed- ECG shows NSR with nonspecific abnormalities. CE are negative for AMI x 1. Patient presented with ?syncope vs seizure. Neurology evaluation is in progress. Echo 07/18/20: EF 55-60%. Tele reviewed: NSR, no arrhythmias noted. CTA Chest suspicious for segmental PTE. Motion artifact was present. Pt has been initiated on heparin drip. Consider V/Q scan per primary- discussed with primary team. Currently stable cardiac status. Continue to trend CE and f/u ECG in AM. Obtain orthostatics. Will Follow. Pt seen in conjunction with Dr Aguero who agrees with this assessment and plan. - Patient Problems (1) Seizure Current Visit: Yes Status: Suspected (2) Syncope Current Visit: Yes Status: Suspected (3) Pulmonary embolism Current Visit: Yes Status: Acute (4) Asthma Current Visit: Yes Status: Chronic
[2020-07-18] MEDS: ACETAMINOPHEN 325 MG TAB PO PRN ×2 (16:13→22:57)
[2020-07-18] MEDS ORDERED: WARFARIN 7.5 MG TAB PO SCH (17:00)
[2020-07-18] MEDS ORDERED: WARFARIN 5 MG TAB PO SCH (17:00)
--- NOTE | 2020-07-18 17:14 | Consultation ---
History of Present Illness Consult date: 07/18/20 Reason for Consult: Seizure Chief complaint: History of presenting illness, patient is a 40-year-old female who passed out at home and observed by by the mother who told EMS that patient had a seizure attack, patient said she woke up in the ambulance and did not remember what happened. There was no prior history of chest pain, shortness of breath, fever or chills, headache or dizziness ,nausea or vomiting and patient was subsequently brought to the emergency room The patient does not recall the event , there has been a loss of awareness ,tongue bite and right shoulder injury , pain over the right shoulder and arm pain Past History Past Medical History: other ( ASTHMA, SINUS DISEASE) Past Surgical History: Other (SINUS SURGERY) Medications and Allergies Allergies Allergy/AdvReac Type Severity Reaction Status Date / Time No Known Allergies Allergy Unverified 07/18/20 06:37 Home Medications Medication Instructions Recorded Confirmed Last Taken Type No Known Home Medications [No 07/18/20 07/18/20 Unknown History Reported Home Medications] Active Meds: Active Medications Acetaminophen (Acetaminophen 325 Mg Tab) 650 mg PO Q4H PRN PRN Reason: Headache Last Admin: 07/18/20 16:13 Dose: 650 mg Documented by: Heparin Sodium/Sodium Chloride (Heparin/ 0.45% Nacl-25,000 Unit/500 Ml) 25,000 unit in 500 mls @ 29 mls/hr IV TITR ADAM; Protocol Last Admin: 07/18/20 10:47 Dose: 1,450 units/hr, 29 mls/hr Documented by: Sodium Chloride (Nacl 0.9% 1000 Ml) 1,000 mls @ 125 mls/hr IV DIRECT ADAM Last Admin: 07/18/20 10:47 Dose: 125 mls/hr Documented by: Lorazepam (Lorazepam 2 Mg/Ml Vial) 1 mg IV Q4H PRN PRN Reason: Seizures Ondansetron HCl (Ondansetron 4 Mg/2 Ml Inj) 4 mg IV Q8H PRN PRN Reason: Nausea And Vomiting Physical Examination - Vital Signs Vital Signs: Vital Signs Temp Pulse Resp BP Pulse Ox 98.0 F 86 15 113/67 98 07/18/20 03:08 07/18/20 03:08 07/18/20 03:08 07/18/20 03:08 07/18/20 03:08 - Physical Exam Narrative exam: The patient is alert , moves all 4 extremity , right shoulder movement restriction and weakness in the proximal weakness Results - Laboratory Findings CBC and BMP: 07/18/20 08:12 07/18/20 04:25 Abnormal Lab Findings: Abnormal Labs 07/18/20 07/18/20 07/18/20 04:25 04:25 04:25 RDW 12.5 L Lymph % (Auto) 13.3 L Lymph # (Auto) 0.9 L Seg Neutrophils % 80.3 H D-Dimer Glucose 109 H Total Creatine Kinase Salicylates < 0.3 L Acetaminophen 07/18/20 07/18/20 07/18/20 04:25 04:25 04:25 RDW Lymph % (Auto) Lymph # (Auto) Seg Neutrophils % D-Dimer 1482.03 H Glucose Total Creatine Kinase 336 H Salicylates Acetaminophen 5.0 L Assessment and Plan 1. Seizure ( Generalized ). 2. Needs a comprehensive workup and out patient follow up. 3. MRI Brain and MRI Right Shoulder no contrast in Hospital . 4. EEG in Hospital ( if normal consider Ambulatory EEG 72 hours ). 5. Start Keppra 250 mg BID in 2 weeks 500 mg BID 6. Follow up in am Dr. Hernandez LLANOS
[2020-07-18 18:26] LABS: Creatine Kinase MB 2.5 ng/mL (0.0-4.0)
--- NOTE | 2020-07-18 20:20 | Nuclear Medicine Report ---
NUCLEAR MEDICINE PERFUSION LUNG SCAN INDICATION / CLINICAL INFORMATION: Abnormal CTA chest/rule out PE. TECHNIQUE: 4.5 mCi of Tc-99m MAA were given by IV. COMPARISON: CTA chest today's date FINDINGS: PERFUSION: No significant perfusion defects. ADDITIONAL FINDINGS: None. IMPRESSION: 1. Low probability for pulmonary embolism. However, because of the previous CT findings recommend repeat CTA for further evaluation Signer Name: Brooks Boyd MD Signed: 07/18/2020 8:16 PM Workstation Name: [id number]
[2020-07-18 22:01] LABS: Creatine Kinase MB 2.2 ng/mL (0.0-4.0)
--- NOTE | 2020-07-18 23:10 | Vascular Lab Report ---
VL venous duplex LE BILAT INDICATION / CLINICAL INFORMATION: PTE, elevated Ddimer. TECHNIQUE: Duplex doppler imaging was performed using venous compression and other maneuvers. COMPARISON: None available. FINDINGS: No venous thrombosis is identified within the visualized extremity vasculature. ADDITIONAL FINDINGS: None. IMPRESSION: 1. No sonographic evidence for DVT in the visualized bilateral lower extremity vasculature. Signer Name: Chandan Beckett MD Signed: 07/18/2020 11:05 PM Workstation Name: [id number]
[2020-07-19 00:30] LABS: INR 1.12 (0.87-1.13)
--- NOTE | 2020-07-19 01:15 | Vascular Lab Report ---
VL carotid duplex BILAT INDICATION / CLINICAL INFORMATION: syncope COMPARISON: None available. FINDINGS: RIGHT CAROTID: - CCA velocity: 112 cm/sec. - ICA peak systolic velocity: 113 cm/sec. - ICA/CCA PSV Ratio: Normal Right Vertebral Artery: Antegrade flow. LEFT CAROTID: - CCA velocity: 107 cm/sec. - ICA peak systolic velocity: 123 cm/sec. - ICA/CCA PSV Ratio: Left Vertebral Artery: Antegrade flow. IMPRESSION: 1. No occlusion or hemodynamically significant stenosis of the bilateral carotid arteries. Velocity criteria are extrapolated from diameter data as defined by the Society of Radiologists in Ul trasound Consensus Conference, Radiology 2003; 229;340-346. NO STENOSIS (NORMAL) * Plaque = none; ICA PSV < 125 cm/sec; ICA/CCA PSV Ratio < 2.0 <50% STENOSIS * Plaque < 50%; ICA PSV < 125 cm/sec; ICA/CCA PSV Ratio < 2.0 50-69% STENOSIS * Plaque > 50%; ICA PSV = 125-230 cm/sec; ICA/CCA PSV Ratio = 2.0-4.0 >70% BUT <100% STENOSIS * Plaque > 50%; ICA PSV > 230 cm/sec; ICA/CCA PSV Ratio > 4.0 NEAR OCCLUSION * Plaque = visible lumen; ICA PSV = high/low/none; ICA/CCA PSV Ratio = variable TOTAL OCCLUSION * Plaque = no lumen; ICA PSV = none; ICA/CCA PSV Ratio = N/A Signer Name: Chandan Beckett MD Signed: 07/19/2020 1:10 AM Workstation Name: [id number]
[2020-07-19] MEDS: SODIUM CHLORIDE 0.9% 1000 ML 1,000 ML IV SCH (02:04)
[2020-07-19 05:31] LABS: Basophils % (Auto) 0.6 % (0.0-1.8); Eosinophils # (Auto) 0.1 K/mm3 (0.0-0.4); Eosinophils % (Auto) 2.2 % (0.0-4.3); Hematocrit 30.5 % (30.3-42.9); Hemoglobin 10.4 gm/dl (10.1-14.3); Lymphocytes % (Auto) 39.1 % (13.4-35.0); Mean Corpuscular HGB Conc 34 % (30-34); Mean Corpuscular Volume 94 fl (79-97); Monocytes # (Auto) 0.4 K/mm3 (0.0-0.8); Monocytes % (Auto) 7.6 % (0.0-7.3); Platelet Count 231 K/mm3 (140-440); Red Blood Count 3.26 M/mm3 (3.65-5.03); Red Cell Distribution Width 12.8 % (13.2-15.2)
[2020-07-19] MEDS: HEPARIN/ 0.45% NACL DRIP 25,000 UNIT/500 ML BAG IV SCH (06:31)
--- NOTE | 2020-07-19 09:27 | Magnetic Resonance Report ---
MR brain wo con INDICATION / CLINICAL INFORMATION: 40 years Female; right-sided weakness; seizure. TECHNIQUE: Multiplanar, multisequence MR images of the brain were obtained. COMPARISON: CT-07/18/2020 FINDINGS: BRAIN / INTRACRANIAL CONTENTS: No acute hemorrhage, midline shift, hydrocephalus, or acute, large ter ritorial infarct. No chronic infarct or atrophy. No significant white matter abnormality. CRANIOCERVICAL JUNCTION: Tonsillar ectopia seen without mass effect on the cervicomedullary junction. VASCULAR FLOW-VOIDS: No significant abnormality. ORBITS: No significant abnormality of visualized orbits. SINUSES / MASTOIDS: Left frontal sinus appears to be expanded with an air-fluid level present. There is mass effect on the left frontal lobe-findings are most likely on a chronic basis. There may have b een a mucocele present previously, and clinical correlation is recommended. There is suggestion of a polypoid type lesion extending from the superior ethmoid region, near the ri ght frontal nasal passageway region into the adjacent inferior ethmoid region and nasal airway. There most likely is mass effect on the frontal nasal passageway. The right frontal sinus is opacified. There is significant opacification of the ethmoids. Prior antrostomy noted on the left. There is mode rate mucosal thickening in the maxillary antra. Mild to moderate mucosal thickening also seen in the sphenoid sinuses. There is partial opacification of the mastoid air cells, as well. ADDITIONAL FINDINGS: None. IMPRESSION: 1. No focal mass, hemorrhage, hydrocephalus, or acute ischemia. 2. Sinus disease as described above. Dedicated CT of the paranasal sinuses may be of benefit. Signer Name: Lowell Funes MD, III Signed: 07/19/2020 9:22 AM Workstation Name: [id number]
--- NOTE | 2020-07-19 09:57 | Magnetic Resonance Report ---
MRI RIGHT SHOULDER WITHOUT CONTRAST INDICATION / CLINICAL INFORMATION: MAIN. Shoulder pain. TECHNIQUE: Multiplanar, multisequence MR images were obtained. No contrast used. COMPARISON: None available. FINDINGS: SUPRASPINATUS: Moderate tendinosis INFRASPINATUS: Moderate distal tendinosis. No tear SUBSCAPULARIS: Moderate distal tendinosis. No tear BICEPS TENDON, LONG HEAD: Mild intra-articular biceps tendinosis. GLENOID LABRUM: Tear involving the anterior and inferior glenoid labrum with 9 mm paralabral cyst. ARTICULAR CARTILAGE: Mild chondrosis. JOINT SPACE AND CAPSULE: Large joint effusion and synovitis. ACROMION and A.C. JOINT: Mild AC joint degenerative changes without significant encroachment. SUBACROMIAL/SUBDELTOID SPACE: Moderate bursitis. BONES: Large Hill-Sachs impaction fracture with associated bone marrow edema involving the posterior aspect of the humeral head. No aggressive osseous lesion. SOFT TISSUES: Superficial soft tissue swelling and edema over the shoulder, most severe posteriorly. ADDITIONAL FINDINGS: None. IMPRESSION: 1. Constellation of findings consistent with prior anterior glenohumeral dislocation with large Hill- Sachs impaction fracture and soft tissue Bankart injury. There is a 9 mm paralabral cyst anteriorly. 2. Rotator cuff tendinosis 3. Superficial soft tissue swelling and edema as well as large joint effusion. Report dictated by: Richi Macdonald MD Report dictated on: 07/19/2020 8:47 AM I have reviewed the images, agree with this report, and edited this report as needed. Signer Name: Kael Christensen MD Signed: 07/19/2020 9:52 AM Workstation Name: [id number]
--- NOTE | 2020-07-19 10:31 | Progress Note ---
Assessment and Plan Cardiology consulted for abnormal ECG. ECG reviewed- ECG shows NSR with nonspecific abnormalities. CE are negative for AMI x 3. Patient presented with ?syncope vs seizure. Neurology evaluation is in progress. Echo 07/18/20: EF 55-60%. Tele reviewed: SR, HR 80. No events. V/Q Scan and CTA Chest reviewed: Consensus No PTE. BLE US: Negative, No DVT. Orthostatic BPs were negative. Currently stable cardiac status. Patient may discharged from cardiology standpoint. Recommend out patient f/u with Dr Aguero, Cardiology. Pt seen in conjunction with Dr Aguero who agrees with this assessment and plan. - Patient Problems (1) Seizure Current Visit: Yes Status: Suspected (2) Syncope Current Visit: Yes Status: Suspected (3) Pulmonary embolism Current Visit: Yes Status: Ruled-out (4) Asthma Current Visit: Yes Status: Chronic Subjective Date of service: 07/19/20 Principal diagnosis: Seizure Interval history: Patient is resting in bed comfortably. No new cardiac concerns. Tele reviewed: SR, HR 80. No events. Objective Last Vital Signs Temp 98.1 F 07/19/20 07:25 Pulse 69 07/19/20 07:25 Resp 15 07/19/20 07:25 BP 140/61 07/19/20 07:25 Pulse Ox 99 07/19/20 07:25 - Physical Examination General: No Apparent Distress HEENT: Positive: PERRL Neck: Positive: neck supple, trachea midline Cardiac: Positive: Reg Rate and Rhythm, S1/S2 Lungs: Positive: Normal Breath Sounds Neuro: Positive: Grossly Intact Abdomen: Positive: Unremarkable Skin: Negative: Rash, Wound Musculoskeletal: No Pain Extremities: Present: upper extr. pulses, lower extr. pulses. Absent: edema - Labs and Meds Cardiac Enzymes 07/18/20 07/18/20 Range/Units 17:45 21:09 CK-MB (CK-2) 2.5 2.2 (0.0-4.0) ng/mL Coagulation 07/19/20 Range/Units Unknown PT 14.3 (12.2-14.9) Sec. INR 1.12 (0.87-1.13) CBC 07/19/20 Range/Units 04:51 WBC 5.1 (4.5-11.0) K/mm3 RBC 3.26 L (3.65-5.03) M/mm3 Hgb 10.4 (10.1-14.3) gm/dl Hct 30.5 (30.3-42.9) % Plt Count 231 (140-440) K/mm3 Lymph # (Auto) 2.0 (1.2-5.4) K/mm3 [place] # (Auto) 0.4 (0.0-0.8) K/mm3 Eos # (Auto) 0.1 (0.0-0.4) K/mm3 Baso # (Auto) 0.0 (0.0-0.1) K/mm3 - Imaging and Cardiology EKG: report reviewed, image reviewed Echo: report reviewed (Echo 07/18/20: EF 55-60%. ) - Telemetry EKG Rhythm: Sinus Rhythm
--- NOTE | 2020-07-19 10:48 | Progress Note ---
Assessment and Plan Assessment and plan: Work-up so far CT head: without contrast no acute abnormality noted MRI brain: no acute abnormality noted, sinus disease CT cervical spine: No acute abnormality noted MRI right shoulder; findings consistent with prior anterior glenohumeral dislocation 9 mm 9mm cyst anteriorly rotator cuff tendinitis ,Superficial soft tissue swelling large joint effusion Patient will follow with private orthopedic surgeon[op] CTA chest; findings inconclusive VQ scan; low probability for PE Lower extremity venous Doppler no DVT --Syncope; Fall precautions Work-up is negative to date CT head negative for abnormality --Sinus disease; on MRI brain Augmentin for 7 days, antihistamines --Seizure; no new episodes of seizures Seizure precautions, neuro evaluated the patient On Keppra to 50 mg twice a day MRI brain no acute abnormalities Cannot drive for 6 months or cleared by PMD/neuro --Shoulder pain; old injury MRI findings reviewed, Pain medications Follow-up with private orthopedic surgeon upon discharge for further evaluation management --Abnormal EKG; Cardiology evaluated the patient, no acute abnormality Follow-up outpatient upon discharge --Obesity; BMI 35.8 Patient needs weight reduction when medically stable --DVT prophylaxis; Lovenox Ambulate as tolerated ,physical therapy if needed We will closely monitor the patient and adjust the management as needed Hospitalist Physical - Constitutional Vitals: Temp Pulse Resp BP Pulse Ox 98.1 F 69 15 140/61 99 07/19/20 07:25 07/19/20 07:25 07/19/20 07:25 07/19/20 07:25 07/19/20 07:25 General appearance: Present: no acute distress HEART Score - HEART Score Risk factors: 1-2 risk factors Troponin: Troponin T < 0.010 ng/mL (0.00-0.029) 07/18/20 21:09 Troponin: < normal limit - Critical Actions Critical Actions: 0-3 pts:0.9-1.7%risk of adverse cardiac event.Candidate for discharge Results - Labs CBC & Chem 7: 07/19/20 04:51 07/18/20 04:25 Labs: Laboratory Last Values WBC 5.1 K/mm3 (4.5-11.0) 07/19/20 04:51 RBC 3.26 M/mm3 (3.65-5.03) L 07/19/20 04:51 Hgb 10.4 gm/dl (10.1-14.3) 07/19/20 04:51 Hct 30.5 % (30.3-42.9) 07/19/20 04:51 MCV 94 fl (79-97) 07/19/20 04:51 MCH 32 pg (28-32) 07/19/20 04:51 MCHC 34 % (30-34) 07/19/20 04:51 RDW 12.8 % (13.2-15.2) L 07/19/20 04:51 Plt Count 231 K/mm3 (140-440) 07/19/20 04:51 Lymph % (Auto) 39.1 % (13.4-35.0) H 07/19/20 04:51 [place] % (Auto) 7.6 % (0.0-7.3) H 07/19/20 04:51 Eos % (Auto) 2.2 % (0.0-4.3) 07/19/20 04:51 Baso % (Auto) 0.6 % (0.0-1.8) 07/19/20 04:51 Lymph # (Auto) 2.0 K/mm3 (1.2-5.4) 07/19/20 04:51 [place] # (Auto) 0.4 K/mm3 (0.0-0.8) 07/19/20 04:51 Eos # (Auto) 0.1 K/mm3 (0.0-0.4) 07/19/20 04:51 Baso # (Auto) 0.0 K/mm3 (0.0-0.1) 07/19/20 04:51 Seg Neutrophils % 50.5 % (40.0-70.0) 07/19/20 04:51 Seg Neutrophils # 2.5 K/mm3 (1.8-7.7) 07/19/20 04:51 PT 14.3 Sec. (12.2-14.9) 07/19/20 Unknown INR 1.12 (0.87-1.13) 07/19/20 Unknown APTT 32.0 Sec. (24.2-36.6) 07/18/20 08:12 D-Dimer 1482.03 ng/mlDDU (0-234) H 07/18/20 04:25 Sodium 138 mmol/L (137-145) 07/18/20 04:25 Potassium 4.0 mmol/L (3.6-5.0) 07/18/20 04:25 Chloride 103.3 mmol/L (98-107) 07/18/20 04:25 Carbon Dioxide 25 mmol/L (22-30) 07/18/20 04:25 Anion Gap 14 mmol/L 07/18/20 04:25 BUN 13 mg/dL (7-17) 07/18/20 04:25 Creatinine 0.9 mg/dL (0.6-1.2) 07/18/20 04:25 Estimated GFR > 60 ml/min 07/18/20 04:25 BUN/Creatinine Ratio 14 % 07/18/20 04:25 Glucose 109 mg/dL (65-100) H 07/18/20 04:25 Calcium 8.8 mg/dL (8.4-10.2) 07/18/20 04:25 Magnesium 1.80 mg/dL (1.7-2.3) 07/19/20 04:51 Total Bilirubin 0.40 mg/dL (0.1-1.2) 07/18/20 04:25 AST 18 units/L (5-40) 07/18/20 04:25 ALT 10 units/L (7-56) 07/18/20 04:25 Alkaline Phosphatase 67 units/L (35-129) 07/18/20 04:25 Total Creatine Kinase 580 units/L (30-135) H 07/18/20 21:09 CK-MB (CK-2) 2.2 ng/mL (0.0-4.0) 07/18/20 21:09 CK-MB (CK-2) Rel Index 0.3 (0-4) 07/18/20 21:09 Troponin T < 0.010 ng/mL (0.00-0.029) 07/18/20 21:09 Total Protein 7.7 g/dL (6.3-8.2) 07/18/20 04:25 Albumin 4.3 g/dL (3.9-5) 07/18/20 04:25 Albumin/Globulin Ratio 1.3 % 07/18/20 04:25 HCG, Quant < 2 mIU/mL (0-4) 07/18/20 04:25 Urine Color Yellow (Yellow) 07/18/20 04:11 Urine Turbidity Slightly-cloudy (Clear) 07/18/20 04:11 Urine pH 5.0 (5.0-7.0) 07/18/20 04:11 Ur Specific [place] 1.019 (1.003-1.030) 07/18/20 04:11 Urine Protein 30 mg/dl mg/dL (Negative) 07/18/20 04:11 Urine Glucose (UA) Neg mg/dL (Negative) 07/18/20 04:11 Urine Ketones Neg mg/dL (Negative) 07/18/20 04:11 Urine Blood Neg (Negative) 07/18/20 04:11 Urine Nitrite Neg (Negative) 07/18/20 04:11 Urine Bilirubin Neg (Negative) 07/18/20 04:11 Urine Urobilinogen 4.0 mg/dL (<2.0) 07/18/20 04:11 Ur Leukocyte Esterase Neg (Negative) 07/18/20 04:11 Urine WBC (Auto) 5.0 /HPF (0.0-6.0) 07/18/20 04:11 Urine RBC (Auto) 4.0 /HPF (0.0-6.0) 07/18/20 04:11 U Epithel Cells (Auto) 1.0 /HPF (0-13.0) 07/18/20 04:11 Urine Bacteria (Auto) 2+ /HPF (Negative) 07/18/20 04:11 Urine Mucus Few /HPF 07/18/20 04:11 Urine Yeast (Budding) Few /HPF 07/18/20 04:11 Salicylates < 0.3 mg/dL (2.8-20.0) L 07/18/20 04:25 Urine Opiates Screen Presumptive negative 07/18/20 04:11 Urine Methadone Screen Presumptive negative 07/18/20 04:11 Acetaminophen 5.0 ug/mL (10.0-30.0) L 07/18/20 04:25 Ur Barbiturates Screen Presumptive negative 07/18/20 04:11 Ur Phencyclidine Scrn Presumptive negative 07/18/20 04:11 Ur Amphetamines Screen Presumptive negative 07/18/20 04:11 U Benzodiazepines Scrn Presumptive negative 07/18/20 04:11 Urine Cocaine Screen Presumptive negative 07/18/20 04:11 U Marijuana (THC) Screen Presumptive negative 07/18/20 04:11 Drugs of Abuse Note Disclamer 07/18/20 04:11 Plasma/Serum Alcohol < 0.01 % (0-0.07) 07/18/20 04:25 [place]/IV: Voiding Method Toilet Active Medications - Current Medications Current Medications: Generic Name Dose Route Start Last Admin Trade Name Freq PRN Reason Stop Dose Admin Acetaminophen 650 mg 07/18/20 06:56 07/18/20 22:57 Acetaminophen 325 Mg Tab PO 650 mg Q4H PRN Administration Headache Heparin Sodium/Sodium Chloride 25,000 unit in 500 mls @ 29 mls/hr 07/18/20 07:00 07/19/20 06:31 Heparin/ 0.45% Nacl-25,000 Unit/500 Ml IV 1,450 units/hr TITR ADAM 29 mls/hr Administration Protocol 1,450 UNITS/HR Sodium Chloride 1,000 mls @ 125 mls/hr 07/18/20 07:30 07/19/20 02:04 Nacl 0.9% 1000 Ml IV 125 mls/hr DIRECT ADAM Administration Lorazepam 1 mg 07/18/20 07:00 Lorazepam 2 Mg/Ml Vial IV Q4H PRN Seizures Ondansetron HCl 4 mg 07/18/20 07:00 Ondansetron 4 Mg/2 Ml Inj IV Q8H PRN Nausea And Vomiting Nutrition/Malnutrition Assess - Dietary Evaluation Nutrition/Malnutrition Findings: Nutrition Notes Start: 07/18/20 11:43 Freq: Status: Active Protocol: Document 07/18/20 11:43 (Rec: 07/18/20 11:48 [id number]) Nutrition Notes Need for Assessment generated from: pipe liner,MST,Education Initial or Follow up Brief Note Other Pertinent Diagnosis syncope, seizure, pulmonary embolism Current Diet Regular Pertinent Medications Coumadin Subjective/Other Information RN screen for MST. Screen for Coumadin education. Pt reports no weight loss or appetite changes. Pt eating breakfast at time of visit and states she will likely finish it. Pt reports not being on Coumadin previously and given education . #1 Nutrition Diagnosis Food and nutrition-related knowledge deficit Etiology Coumadin/Vitamin K interaction As Evidenced by Signs and Symptoms pt not on Coumadin previously, had questions about vit K foods Nutrition Intervention Teaching Recipient Patient Learning Readiness Good Teaching Methods Discussion,Handout Response to Teaching Verbalize understanding Education Handouts Provided Vitamin K and Medications Barriers to Learning No Barriers RD phone number provided Yes Patient aware of follow up options Yes Revisit per MD consult or patient Sign Off request:
[2020-07-19] MEDS ORDERED: AMOXICILLIN/K CLAV 875/125MG TAB PO SCH (11:00)
[2020-07-19] MEDS ORDERED: oxyCODONE /ACETAMINOPHEN 5-325MG TAB PO PRN (12:00)
--- NOTE | 2020-07-19 17:18 | Progress Note ---
Subjective Date of service: 07/19/20 Principal diagnosis: Seizure Interval history: Reviewed MRI Brain - MRI Shoulder - The event clinically appears ? Seizures . Recommendations : 1. Start Keppra 250 mg BID and patient can follow up in my office in 1 week . 2. No driving for 6 months 3. Patient can go home Dr. Ng Objective - Vital Sign Vital Signs - 12hr 07/19/20 07/19/20 07/19/20 07:25 10:00 12:00 Temperature 98.1 F Pulse Rate 69 64 Pulse Rate [ 72 Apical] Pulse Rate [ 72 From Monitor] Respiratory 15 15 Rate Blood Pressure 140/61 Blood Pressure [Left] O2 Sat by Pulse 99 97 Oximetry 07/19/20 07/19/20 07/19/20 12:28 13:26 13:28 Temperature 97.1 F L Pulse Rate 87 Pulse Rate [ Apical] Pulse Rate [ From Monitor] Respiratory 17 14 14 Rate Blood Pressure Blood Pressure 131/77 [Left] O2 Sat by Pulse 98 Oximetry - Laboratory Findings CBC and BMP: 07/19/20 04:51 07/18/20 04:25 Abnormal Lab Findings: Abnormal Labs 07/18/20 07/18/20 07/18/20 04:25 04:25 04:25 RBC RDW 12.5 L Lymph % (Auto) 13.3 L [place] % (Auto) Lymph # (Auto) 0.9 L Seg Neutrophils % 80.3 H D-Dimer Glucose 109 H Total Creatine Kinase Salicylates < 0.3 L Acetaminophen 07/18/20 07/18/20 07/18/20 04:25 04:25 04:25 RBC RDW Lymph % (Auto) [place] % (Auto) Lymph # (Auto) Seg Neutrophils % D-Dimer 1482.03 H Glucose Total Creatine Kinase 336 H Salicylates Acetaminophen 5.0 L 07/18/20 07/18/20 07/19/20 17:45 21:09 04:51 RBC 3.26 L RDW 12.8 L Lymph % (Auto) 39.1 H [place] % (Auto) 7.6 H Lymph # (Auto) Seg Neutrophils % D-Dimer Glucose Total Creatine Kinase 564 H 580 H Salicylates Acetaminophen
[2020-07-19 18:28] VITALS: BP 105/67
--- NOTE | 2020-07-19 18:31 | Discharge Summary ---
Providers - Providers Date of Admission: 07/18/20 17:00 Date of discharge: 07/19/20 Attending physician: ANKUR PELLETIER 07/18/20 06:51 Consult to Physician [CONS] Routine Comment: Consulting Provider: TARA MORAN Physician Instructions: Reason For Exam: seizure 07/18/20 07:35 Consult to Physician [CONS] Routine Comment: Consulting Provider: TYLER CARTWRIGHT Physician Instructions: Reason For Exam: ABNORMAL EKG 07/19/20 18:18 Physical Therapy Evaluation and Treat [CONS] Routine Comment: Reason For Exam: Syncope/seizures/unsteady gait/DC needs Primary care physician: [employer] Hospitalization Condition: Stable Pertinent studies: CT head: without contrast no acute abnormality noted MRI brain: no acute abnormality noted, sinus disease CT cervical spine: No acute abnormality noted MRI right shoulder; findings consistent with prior anterior glenohumeral dislocation 9 mm 9mm cyst anteriorly rotator cuff tendinitis ,Superficial soft tissue swelling large joint effusion Patient will follow with private orthopedic surgeon[op] CTA chest; findings inconclusive VQ scan; low probability for PE Lower extremity venous Doppler no DVT Disposition: DC-01 TO HOME OR SELFCARE Time spent for discharge: 35 min Core Measure Documentation - Palliative Care Palliative Care/ Comfort Measures: Not Applicable - Core Measures Any of the following diagnoses?: none Exam - Constitutional Vitals: Temp Pulse Resp BP Pulse Ox 97.1 F L 87 14 131/77 98 07/19/20 13:26 07/19/20 13:26 07/19/20 13:28 07/19/20 13:26 07/19/20 13:26 General appearance: Present: no acute distress, well-nourished - EENT Eyes: Present: PERRL, EOM intact - Neck Neck: Present: supple, normal ROM - Respiratory Respiratory effort: normal Respiratory: bilateral: diminished, negative: rales, rhonchi, wheezing - Cardiovascular Rhythm: regular Heart Sounds: Present: S1 & S2 - Extremities Extremities: no ischemia, No edema Plan Activity: advance as tolerated, no driving until cleared by PCP, fall precautions, other (Seizure precautions) Diet: regular Additional Instructions: Do not drive for 6 months or until cleared by neurologist/PMD. Seizure precautions, fall precautions. Follow with private neurologist, orthopedic surgeon and primary care physician per schedule. If you have worsening symptoms contact MD or go to emergency room as needed Follow up with: PRIMARY CAREMD [Primary Care Provider] - 3-5 Days TREY SHAH MD [Staff Physician] - 14 Days TARA MORAN MD [Staff Physician] - 7 Days DESTINI VEGA MD [Staff Physician] - 10 Days Prescriptions: Amoxicillin/K Clav Tab [Augmentin 875MG TAB] 1 each PO Q12HR #10 tablet levETIRAcetam [Keppra TAB] 250 mg PO BID #60 tablet Ibuprofen [Motrin 400 MG tab] 400 mg PO Q8H PRN #30 tablet PRN Reason: Pain , Severe (7-10)
== END 2020-07-19 23:30 | disposition home or self-care (01) | DRG 100 ==
LOC: ED 02:19 → 4A 05:59 → OBSVTOIN 17:00
PROVIDERS: ADMIT Internal Medicine; ATTEND Internal Medicine
DX: G40.409 Other generalized epilepsy and epileptic syndromes, not intractable, without status epilepticus (principal); I26.99 Other pulmonary embolism without acute cor pulmonale; R55 Syncope and collapse; R94.31 Abnormal electrocardiogram [ECG] [EKG]; J45.909 Unspecified asthma, uncomplicated; S09.90XA Unspecified injury of head, initial encounter; X58.XXXA Exposure to other specified factors, initial encounter; E66.9 Obesity, unspecified; Z68.35 Body mass index [BMI] 35.0-35.9, adult; Y93.89 Activity, other specified; Y92.89 Other specified places as the place of occurrence of the external cause; Y99.8 Other external cause status
CPT/HCPCS: 36415; 70450; 70551; 71275; 72125; 78580; 80053; 80307; 80320; 81001; 82550; 82553; 83735; 84484; 84702; 85014; 85018; 85025; 85049; 85379; 85610; 85730; 93005; 93306; 93880; 93970; 96366; 96374; 96375; 96376; G0378; A9540; G0480; J1200; J1644; J1650; J2765; J7030; J7120; Q9967

== ENCOUNTER 2020-07-31 10:31 | Emergency (ER) | payer OTHER, SELFPAY ==
[2020-07-31 11:06] VITALS: BP 113/80
--- NOTE | 2020-07-31 11:11 | Emergency Department Report ---
Upper Extremity - HPI Chief Complaint: Extremity Injury, Upper Stated Complaint: RT ARM PAIN Time Seen by Provider: 07/31/20 11:06 Upper Extremity: Right Arm Occurred When: >5 Days Mechanism: Fall (Had a fall while having a syncopal or seizure episode reports continued pain to the right humerus region worse with palpation and various range of motion. Was seen in the emergency department reports having a CT scan of her shoulder but does not feel that they looked at the humerus very well ) Symptoms: Yes Pain with Movement, No Deformity, No Limited Range of Movement, No Weakness, No Swelling, No Bruising/Ecchymosis Other History: Pain is worse with palpation and range of motion she reports no reinjury but has not been able to rest her arm as much as she thinks she needs to over the past week as she is been having to be more more active with work and activities of daily living which may correspond with some of the issues of her pain. ED Review of Systems ROS: Stated complaint: RT ARM PAIN Other details as noted in HPI Comment: All other systems reviewed and negative ED Past Medical Hx - Past Medical History Previous Medical History?: Yes Hx Asthma: Yes - Surgical History Past Surgical History?: Yes Additional Surgical History: sinus - Social History Smoking Status: Never Smoker Substance Use Type: Alcohol - Medications Home Medications: Home Medications Medication Instructions Recorded Confirmed Last Taken Type Amoxicillin/K Clav Tab [Augmentin 1 each PO Q12HR #10 tablet 07/19/20 Unknown Rx 875MG TAB] Ibuprofen [Motrin 400 MG tab] 400 mg PO Q8H PRN #30 tablet 07/19/20 Unknown Rx levETIRAcetam [Keppra TAB] 250 mg PO BID #60 tablet 07/19/20 Unknown Rx Upper Extremity Exam - Exam General: Vital signs noted. No distress. Alert and acting appropriately. Head and Torso: No HEENT Abnormality, No Neck Tenderness, No Chest/Lungs Abnormality, No Abdominal Tenderness, No Back Tenderness Shoulder Exam: Yes Normal Range of Motion in Shoulder, No Shoulder Tenderness, No Clavicle Tenderness, No Shoulder Deformity, No AC Joint Tenderness Arm Exam: Yes Arm/Humerus Tenderness (Right side), No Arm Deformity Elbow: No Elbow Tenderness, No Normal Range of Motion in Elbow, No Elbow Deformity Forearm: No Forearm Tenderness, No Forearm Deformity, No Pain with Pronation, No Pain with Supination Wrist: Yes Normal ROM in Wrist (Pulses 2+), No Wrist Tenderness, No Wrist Deformity, No Snuffbox Tenderness, No Pain with Axial Thumb Compression Hand: Yes Normal ROM in Digit(s), No Hand Tenderness, No Hand Deformity, No Digit Tenderness, No Digit(s) Deformity, No Tendon Dysfunction CMS Exam: No Broken Skin, No Normal Distal Pulses, No Normal Capillary Refill, No Normal Distal Sensation ED Course Vital Signs 07/31/20 10:53 Temperature 98.9 F Pulse Rate 86 Respiratory 20 Rate Blood Pressure 113/80 O2 Sat by Pulse 99 Oximetry ED Medical Decision Making - Radiology Data Radiology results: report reviewed [address] [place] [address] XRay Report Signed Patient: SHAUNA CEDILLO MR#: [id number] : 1980 Acct:[id number] Age/Sex: 40 / F ADM Date: 07/31/20 Loc: ED Attending Dr: Ordering Physician: BRUNO BURGOS Date of Service: 07/31/20 Procedure(s): XR humerus 2+V RT Accession Number(s): [id number] cc: BRUNO BURGOS Fluoro Time In Minutes: RIGHT HUMERUS 4 VIEW(S) INDICATION / CLINICAL INFORMATION: fall with pain to arm COMPARISON: None available. FINDINGS: BONES / JOINT(S): No acute fracture or subluxation. No significant arthritis. SOFT TISSUES: No significant abnormality. ADDITIONAL FINDINGS: None. IMPRESSION: No acute osseous abnormality. Signer Name: Lakeshia Galdamez MD Signed: 07/31/2020 11:33 AM Workstation Name: [id number] Transcribed By: SS Dictated By: LAKESHIA GALDAMZE Electronically Authenticated By: LAKESHIA GALDAMEZ Signed Date/Time: 07/31/20 1133 DD/ 1132 TD/TT: Critical care attestation.: If time is entered above; I have spent that time in minutes in the direct care of this critically ill patient, excluding procedure time. ED Disposition Clinical Impression: Arm contusion Disposition: - TO HOME OR SELFCARE Is pt being admited?: No Does the pt Need Aspirin: No Condition: Stable Instructions: How to Use Cold Therapy, [id number], Contusion, [id number] Additional Instructions: X-rays are normal and no broken bone please ice and rest as we previously discussed Referrals: PRIMARY CARE, [Primary Care Provider] - 3-5 Days DESTINI VEGA MD [Staff Physician] - 3-5 Days
--- NOTE | 2020-07-31 11:37 | XRay Report ---
RIGHT HUMERUS 4 VIEW(S) INDICATION / CLINICAL INFORMATION: fall with pain to arm COMPARISON: None available. FINDINGS: BONES / JOINT(S): No acute fracture or subluxation. No significant arthritis. SOFT TISSUES: No significant abnormality. ADDITIONAL FINDINGS: None. IMPRESSION: No acute osseous abnormality. Signer Name: Vic Galdamez MD Signed: 07/31/2020 11:33 AM Workstation Name: [id number]
== END 2020-07-31 12:16 | disposition home or self-care (01) ==
LOC: ED 10:31
DX: S40.021A Contusion of right upper arm, initial encounter (principal); J45.909 Unspecified asthma, uncomplicated; Z98.890 Other specified postprocedural states; Z79.899 Other long term (current) drug therapy; X58.XXXA Exposure to other specified factors, initial encounter; Y93.89 Activity, other specified; Y92.89 Other specified places as the place of occurrence of the external cause; Y99.8 Other external cause status

== ENCOUNTER 2020-08-14 09:52 | Emergency (ER) | payer SELFPAY ==
[2020-08-14] MEDS ORDERED: levETIRAcetam 1000 MG/NS 0.75% 1,000 MG/100 ML BAG IV ONE (10:36)
[2020-08-14] MEDS ORDERED: SODIUM CHLORIDE 0.9% 1000 ML 1,000 ML IV ONE (10:36)
--- NOTE | 2020-08-14 10:40 | Emergency Department Report ---
HPI - General Chief Complaint: Seizure Time Seen by Provider: 08/14/20 10:22 - HPI HPI: This is a 40-year-old female presents to the emergency department via EMS from home after the patient had some witnessed seizure-like activity while laying in bed and watching TV, with her mother in the room. The patient was admitted here on 07/18 for a syncope versus seizure. She had a negative CT scan of the head and inpatient had a negative MRI of the brain at that time. She had an inpatient neurology consultation done and was eventually discharged home on K eppra 250 mg twice daily to be increased to 500 mg twice daily after 2 weeks. The patient denies having any outpatient primary care or neurology follow-up. Prior to her previous admission, the patient did not have any previous seizures or seizure-like activity. Currently the patient is awake, alert, oriented, AAO x3. Her only complaint is a mild headache. She denies any vision change, slurred speech, numbness or paresthesias, focal or generalized weakness, shortness of breath, chest pain, fever. She did not take anything or receive anything for her symptoms prior to presentation. ED Past Medical Hx - Past Medical History Previous Medical History?: Yes Hx Seizures: Yes (no meds) Hx Asthma: Yes - Surgical History Past Surgical History?: Yes Additional Surgical History: sinus - Social History Smoking Status: Never Smoker Substance Use Type: None - Medications Home Medications: Home Medications Medication Instructions Recorded Confirmed Last Taken Type Amoxicillin/K Clav Tab [Augmentin 1 each PO Q12HR #10 tablet 07/19/20 Unknown Rx 875MG TAB] Ibuprofen [Motrin 400 MG tab] 400 mg PO Q8H PRN #30 tablet 07/19/20 Unknown Rx levETIRAcetam [Keppra TAB] 250 mg PO BID #60 tablet 07/19/20 Unknown Rx levETIRAcetam [Keppra TAB] 500 mg PO BID #60 tablet 08/14/20 Unknown Rx ED Review of Systems ROS: Stated complaint: SEIZURE Other details as noted in HPI Comment: All other systems reviewed and negative Constitutional: denies: chills, fever Eyes: denies: eye pain, vision change ENT: denies: ear pain, throat pain Respiratory: denies: cough, shortness of breath Cardiovascular: denies: chest pain, palpitations Gastrointestinal: denies: abdominal pain, vomiting Genitourinary: denies: dysuria, discharge Musculoskeletal: denies: back pain, arthralgia Skin: denies: rash, lesions Neurological: headache, other (seizure) Physical Exam - Physical Exam Vital Signs: Vital Signs 08/14/20 08/14/20 08/14/20 10:04 10:06 10:16 Temperature 98.4 F Pulse Rate 95 H 91 H Respiratory 15 16 18 Rate Blood Pressure 153/78 153/78 O2 Sat by Pulse 97 98 Oximetry Physical Exam: GENERAL: The patient is well-developed well-nourished. HENT: Normocephalic. Atraumatic. Patient has moist mucous membranes. EYES: Extraocular motions are intact. NECK: Supple. Trachea is midline. CHEST/LUNGS: Clear to auscultation. There is no respiratory distress noted. HEART/CARDIOVASCULAR: Regular. There is no tachycardia. There is no murmur. ABDOMEN: Abdomen is soft, nontender. Patient has normal bowel sounds. SKIN: Skin is warm and dry. NEURO: The patient is awake, alert, and cooperative. The patient has no focal neurologic deficits. Normal speech. Cranial nerves II through XII grossly intact. No facial asymmetry. No pronator drift. MUSCULOSKELETAL: There is no tenderness or deformity. There is no limitation range of motion. ED Course Vital Signs 08/14/20 08/14/20 08/14/20 10:04 10:06 10:16 Temperature 98.4 F Pulse Rate 95 H 91 H Respiratory 15 16 18 Rate Blood Pressure 153/78 153/78 O2 Sat by Pulse 97 98 Oximetry ED Medical Decision Making - Lab Data Result diagrams: 08/14/20 10:40 08/14/20 10:40 Lab Results 08/14/20 08/14/20 08/14/20 Range/Units 10:20 10:20 10:40 WBC 3.7 L (4.5-11.0) K/mm3 RBC 3.87 (3.65-5.03) M/mm3 Hgb 12.1 (10.1-14.3) gm/dl Hct 36.0 (30.3-42.9) % MCV 93 (79-97) fl MCH 31 (28-32) pg MCHC 34 (30-34) % RDW 12.7 L (13.2-15.2) % Plt Count 276 (140-440) K/mm3 Lymph % (Auto) 16.9 (13.4-35.0) % Arthur % (Auto) 5.4 (0.0-7.3) % Eos % (Auto) 4.5 H (0.0-4.3) % Baso % (Auto) 1.8 (0.0-1.8) % Lymph # (Auto) 0.6 L (1.2-5.4) K/mm3 Arthur # (Auto) 0.2 (0.0-0.8) K/mm3 Eos # (Auto) 0.2 (0.0-0.4) K/mm3 Baso # (Auto) 0.1 (0.0-0.1) K/mm3 Seg Neutrophils % 71.4 H (40.0-70.0) % Seg Neutrophils # 2.6 (1.8-7.7) K/mm3 Sodium (137-145) mmol/L Potassium (3.6-5.0) mmol/L Chloride (98-107) mmol/L Carbon Dioxide (22-30) mmol/L Anion Gap mmol/L BUN (7-17) mg/dL Creatinine (0.6-1.2) mg/dL Estimated GFR ml/min BUN/Creatinine Ratio % Glucose (65-100) mg/dL Calcium (8.4-10.2) mg/dL Total Bilirubin (0.1-1.2) mg/dL AST (5-40) units/L ALT (7-56) units/L Alkaline Phosphatase (35-129) units/L Total Protein (6.3-8.2) g/dL Albumin (3.9-5) g/dL Albumin/Globulin Ratio % TSH (0.270-4.200) mlU/mL HCG, Qual (Negative) Urine Color Yellow (Yellow) Urine Turbidity Clear (Clear) Urine pH 5.0 (5.0-7.0) Ur Specific [place] 1.017 (1.003-1.030) Urine Protein 30 mg/dl (Negative) mg/dL Urine Glucose (UA) Neg (Negative) mg/dL Urine Ketones Neg (Negative) mg/dL Urine Blood Mod (Negative) Urine Nitrite Neg (Negative) Ur Reducing Substances Not Reportable Urine Bilirubin Neg (Negative) Urine Ictotest Not Reportable Urine Urobilinogen < 2.0 (<2.0) mg/dL Ur Leukocyte Esterase Neg (Negative) Urine WBC (Auto) 2.0 (0.0-6.0) /HPF Urine RBC (Auto) 3.0 (0.0-6.0) /HPF U Epithel Cells (Auto) 1.0 (0-13.0) /HPF Urine Bacteria (Auto) 1+ (Negative) /HPF Urine Mucus Few /HPF Urine Opiates Screen Negative Urine Methadone Screen Negative Ur Barbiturates Screen Negative Ur Phencyclidine Scrn Negative Ur Amphetamines Screen Negative U Benzodiazepines Scrn Negative Urine Cocaine Screen Negative U Marijuana (THC) Screen Negative Drugs of Abuse Note Disclamer Plasma/Serum Alcohol (0-0.07) % 08/14/20 08/14/20 08/14/20 Range/Units 10:40 10:40 10:40 WBC (4.5-11.0) K/mm3 RBC (3.65-5.03) M/mm3 Hgb (10.1-14.3) gm/dl Hct (30.3-42.9) % MCV (79-97) fl MCH (28-32) pg MCHC (30-34) % RDW (13.2-15.2) % Plt Count (140-440) K/mm3 Lymph % (Auto) (13.4-35.0) % Arthur % (Auto) (0.0-7.3) % Eos % (Auto) (0.0-4.3) % Baso % (Auto) (0.0-1.8) % Lymph # (Auto) (1.2-5.4) K/mm3 Arthur # (Auto) (0.0-0.8) K/mm3 Eos # (Auto) (0.0-0.4) K/mm3 Baso # (Auto) (0.0-0.1) K/mm3 Seg Neutrophils % (40.0-70.0) % Seg Neutrophils # (1.8-7.7) K/mm3 Sodium 137 (137-145) mmol/L Potassium 4.5 (3.6-5.0) mmol/L Chloride 104.5 (98-107) mmol/L Carbon Dioxide 24 (22-30) mmol/L Anion Gap 13 mmol/L BUN 11 (7-17) mg/dL Creatinine 0.9 (0.6-1.2) mg/dL Estimated GFR > 60 ml/min BUN/Creatinine Ratio 12 % Glucose 96 (65-100) mg/dL Calcium 9.0 (8.4-10.2) mg/dL Total Bilirubin 0.40 (0.1-1.2) mg/dL AST 13 (5-40) units/L ALT 9 (7-56) units/L Alkaline Phosphatase 60 (35-129) units/L Total Protein 7.0 (6.3-8.2) g/dL Albumin 4.2 (3.9-5) g/dL Albumin/Globulin Ratio 1.5 % TSH 1.030 (0.270-4.200) mlU/mL HCG, Qual Negative (Negative) Urine Color (Yellow) Urine Turbidity (Clear) Urine pH (5.0-7.0) Ur Specific [place] (1.003-1.030) Urine Protein (Negative) mg/dL Urine Glucose (UA) (Negative) mg/dL Urine Ketones (Negative) mg/dL Urine Blood (Negative) Urine Nitrite (Negative) Ur Reducing Substances Urine Bilirubin (Negative) Urine Ictotest Urine Urobilinogen (<2.0) mg/dL Ur Leukocyte Esterase (Negative) Urine WBC (Auto) (0.0-6.0) /HPF Urine RBC (Auto) (0.0-6.0) /HPF U Epithel Cells (Auto) (0-13.0) /HPF Urine Bacteria (Auto) (Negative) /HPF Urine Mucus /HPF Urine Opiates Screen Urine Methadone Screen Ur Barbiturates Screen Ur Phencyclidine Scrn Ur Amphetamines Screen U Benzodiazepines Scrn Urine Cocaine Screen U Marijuana (THC) Screen Drugs of Abuse Note Plasma/Serum Alcohol (0-0.07) % 08/14/20 Range/Units 10:40 WBC (4.5-11.0) K/mm3 RBC (3.65-5.03) M/mm3 Hgb (10.1-14.3) gm/dl Hct (30.3-42.9) % MCV (79-97) fl MCH (28-32) pg MCHC (30-34) % RDW (13.2-15.2) % Plt Count (140-440) K/mm3 Lymph % (Auto) (13.4-35.0) % Arthur % (Auto) (0.0-7.3) % Eos % (Auto) (0.0-4.3) % Baso % (Auto) (0.0-1.8) % Lymph # (Auto) (1.2-5.4) K/mm3 Arthur # (Auto) (0.0-0.8) K/mm3 Eos # (Auto) (0.0-0.4) K/mm3 Baso # (Auto) (0.0-0.1) K/mm3 Seg Neutrophils % (40.0-70.0) % Seg Neutrophils # (1.8-7.7) K/mm3 Sodium (137-145) mmol/L Potassium (3.6-5.0) mmol/L Chloride (98-107) mmol/L Carbon Dioxide (22-30) mmol/L Anion Gap mmol/L BUN (7-17) mg/dL Creatinine (0.6-1.2) mg/dL Estimated GFR ml/min BUN/Creatinine Ratio % Glucose (65-100) mg/dL Calcium (8.4-10.2) mg/dL Total Bilirubin (0.1-1.2) mg/dL AST (5-40) units/L ALT (7-56) units/L Alkaline Phosphatase (35-129) units/L Total Protein (6.3-8.2) g/dL Albumin (3.9-5) g/dL Albumin/Globulin Ratio % TSH (0.270-4.200) mlU/mL HCG, Qual (Negative) Urine Color (Yellow) Urine Turbidity (Clear) Urine pH (5.0-7.0) Ur Specific [place] (1.003-1.030) Urine Protein (Negative) mg/dL Urine Glucose (UA) (Negative) mg/dL Urine Ketones (Negative) mg/dL Urine Blood (Negative) Urine Nitrite (Negative) Ur Reducing Substances Urine Bilirubin (Negative) Urine Ictotest Urine Urobilinogen (<2.0) mg/dL Ur Leukocyte Esterase (Negative) Urine WBC (Auto) (0.0-6.0) /HPF Urine RBC (Auto) (0.0-6.0) /HPF U Epithel Cells (Auto) (0-13.0) /HPF Urine Bacteria (Auto) (Negative) /HPF Urine Mucus /HPF Urine Opiates Screen Urine Methadone Screen Ur Barbiturates Screen Ur Phencyclidine Scrn Ur Amphetamines Screen U Benzodiazepines Scrn Urine Cocaine Screen U Marijuana (THC) Screen Drugs of Abuse Note Plasma/Serum Alcohol < 0.01 (0-0.07) % - EKG Data -: EKG Interpreted by Me EKG shows normal: sinus rhythm, axis (Right axis deviation), intervals, QRS complexes (Low voltage), ST-T waves (Flattened T waves) Rate: normal - EKG Data When compared to previous EKG there are: no significant change Interpretation: unchanged when compared t (07/26/20) - Medical Decision Making This patient presents to the emergency department after having a seizure, witnessed by her mother, just prior to presentation. Since arrival to the emergency department and my initial examination, the patient appears awake, alert, oriented and in no acute distress. She does not have any focal, motor or sensory deficits and her cranial nerves are intact. She was given a loading dose of Keppra. Labs have been mostly unremarkable including CBC, metabolic panel, thyroid function, urine drug screen, blood alcohol level and urinalysis. Also, the patient is not . EKG did not have any morphology consistent with ST elevation myocardial infarction or any dysrhythmia. Vital signs have been reassuring throughout her ED course including being afebrile. She has been reevaluated multiple times over more than 3 hours and there has been no further seizure-like activity or alteration in her mental status. As the patient recently had a CT scan of her head without contrast that did not show any acute process, and since the patient has had a previous seizure with medication noncompliance, I did not feel that repeat imaging of the head was necessary at this time. She appears safe for discharge home and has been given a prescr iption for Keppra and an outpatient referral for Dr. Robison, a neurologist. Patient understands that she cannot drive any vehicles or operate heavy machinery for at least 6 months or until cleared by a PCP or neurologist. She will return to the emergency department with any worsening of her symptoms or with any acute distress. Critical Care Time: No Critical care attestation.: If time is entered above; I have spent that time in minutes in the direct care of this critically ill patient, excluding procedure time. ED Disposition Clinical Impression: Seizure Disposition: DC-01 TO HOME OR SELFCARE Is pt being admited?: No Condition: Stable Instructions: Seizure, Adult Additional Instructions: Please follow-up with a primary care physician in the next few days. I am giving you a referral for a local neurologist, Dr. Robison, to follow-up regarding your seizures. Please take the Keppra as prescribed. Please try to avoid any alcohol, illicit drugs, excessive caffeine. Please try to get 8 hours of uninterrupted sleep at night. Because of your seizures, you are unable to drive any vehicles or operate any heavy machinery for the 6 months, or at least until cleared by a primary care physician or neurologist. Return to the emergency department with any worsening of your symptoms, new or concerning symptoms not addressed during this current emergency department visit , or with any acute distress. Prescriptions: levETIRAcetam [Keppra TAB] 500 mg PO BID #60 tablet Referrals: PRIMARY CAREMD [Primary Care Provider] - 3-5 Days CINDY ROBISON MD [Referring] - 3-5 Days Time of Disposition: 13:13
[2020-08-14 11:03] LABS: Bacteria,Urine 1+ /HPF (Negative); Mucus,Urine FEW /HPF
[2020-08-14 11:04] LABS: Basophils # (Auto) 0.1 K/mm3 (0.0-0.1); Basophils % (Auto) 1.8 % (0.0-1.8); Eosinophils # (Auto) 0.2 K/mm3 (0.0-0.4); Eosinophils % (Auto) 4.5 % (0.0-4.3); Hemoglobin 12.1 gm/dl (10.1-14.3); Lymphocytes # (Auto) 0.6 K/mm3 (1.2-5.4); Lymphocytes % (Auto) 16.9 % (13.4-35.0); Mean Corpuscular HGB Conc 34 % (30-34); Mean Corpuscular Volume 93 fl (79-97); Monocytes # (Auto) 0.2 K/mm3 (0.0-0.8); Monocytes % (Auto) 5.4 % (0.0-7.3); Platelet Count 276 K/mm3 (140-440); Red Blood Count 3.87 M/mm3 (3.65-5.03); Red Cell Distribution Width 12.7 % (13.2-15.2)
[2020-08-14 11:05] LABS: Bilirubin,Urine NEG (Negative); Blood,Urine MOD (Negative); Color,Urine Yellow (Yellow); Urobilinogen,Urine < 2.0 mg/dL (<2.0)
[2020-08-14 11:12] LABS: Amphetamine Screen,Urine Negative; Benzodiazepines Screen,Urine Negative; Cannabinoid Screen,Urine Negative; Cocaine Screen,Urine Negative; Methadone Screen,Urine Negative; Opiate Screen,Urine Negative
[2020-08-14 11:19] LABS: Alanine Aminotransferase 9 units/L (7-56); Albumin 4.2 g/dL (3.9-5); BUN/Creatinine Ratio 12; Blood Urea Nitrogen 11 mg/dL (7-17); Hemolysis Index 12
[2020-08-14 14:19] VITALS: BP 138/70
--- NOTE | 2020-08-18 11:31 | Electrocardiograph Report ---
[facility] Test Date: 2020-08-14 Test Time: 13:00:44 Pat Name: SHAUNA CEDILLO Department: Room: Gender: F Hay Baler: HANNA Hua RN : 1980 Requested By: LÁZARO MONTAÑO Order Number: [id number] Reading MD: Bert Aguero Measurements Intervals Pitman Rate: 64 P: 22 ND: 175 QRS: 3 QRSD: 84 T: 0 QT: 388 QTc: 402 Interpretive Statements Sinus rhythm Borderline T abnormalities, diffuse leads No previous ECG available for comparison Electronically Signed On 08-18-2020 11:31:08 EDT by Bert Aguero
== END 2020-08-14 14:22 | disposition home or self-care (01) ==
LOC: ED 09:52
DX: G40.909 Epilepsy, unspecified, not intractable, without status epilepticus (principal); J45.909 Unspecified asthma, uncomplicated; Z79.899 Other long term (current) drug therapy; Z98.890 Other specified postprocedural states
CPT/HCPCS: 36415; 80053; 80307; 81001; 84443; 84703; 85025; 93005; 96374; 99284; J1953; J7030; 80320; 96361; G0480